=== PATIENT | female | born 1945 | race Caucasian/White ===

== ENCOUNTER 2018-12-20 10:40 | Inpatient (IN) | payer MEDICARE ==
[2018-12-20] VITALS (20 sets, daily range): BP systolic 85–145; BP diastolic 38–67
[~2018-12-20] VITALS: Ht 154.9 cm; Wt 96.8 kg
[2018-12-20] MEDS ORDERED: heparin 10,000 units/1 ML INJ IV ONE (12:30)
[2018-12-20] MEDS ORDERED: ondansetron/PF 4mg/2ml inj IV PRN (12:30)
[2018-12-20] MEDS ORDERED: morphine 4 MG/ML inj SYRINge IV PRN (12:30)
[2018-12-20] MEDS ORDERED: heparin 10,000 units/1 ML INJ IV PRN (12:30)
[2018-12-20] MEDS ORDERED: magnesium hydroxide 30ml (MOM) UD suspension PO PRN (12:30)
[2018-12-20] MEDS ORDERED: morphine 2 MG/ML inj. syringe IV PRN (12:30)
[2018-12-20] MEDS ORDERED: potassium Cl 20 mEq SR tablet PO PRN ×2 (12:30)
[2018-12-20] MEDS ORDERED: potassium CL 10mEq/100ml bag 100 ML IV PRN ×2 (12:30)
[2018-12-20] MEDS ORDERED: acetaminophen 325mg tablet PO PRN (12:30)
--- NOTE | 2018-12-20 12:30 | NUR ---
pt received from [facility] via [employer]. pt awake, alert, but inappropriate as to what is happening and why- reoriented quickly, but feeling claustrophobic and concerned about being stuck here in case there is a fire- reassured pt. discomfort left thigh- left leg edematous with numerous bruise. firmness left thigh posterior. 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 vss- sbp 90's upon arrival. dr segura here. labs drawn from picc without difficulty. temhaider perez placed
[2018-12-20 13:21] LABS: BASOPHILS % (AUTO) 0.5 % (0-1); EOSINOPHILS # (AUTO) 0.2 X10'3 (0-0.9); LYMPHOCYTES # (AUTO) 1.1 X10'3 (1.1-4.8); LYMPHOCYTES % (AUTO) 12.4 % (21-51); MEAN CORPUSCULAR HEMOGLOBIN 30.2 PG (27.0-31.0); MEAN CORPUSCULAR HGB CONC 33.8 g/dL (33.0-36.5); MEAN CORPUSCULAR VOLUME 89.3 FL (78-98); MEAN PLATELET VOLUME 7.9 FL (7.4-10.4); MONOCYTES # (AUTO) 1.1 X10'3 (0-0.9); MONOCYTES % (AUTO) 12.6 % (2-12); NEUTROPHILS # (AUTO) 6.3 X10'3 (1.8-7.7); NEUTROPHILS % (AUTO) 72.5 % (42-75); PLATELET COUNT 143 X10'3 (140-440); RED BLOOD COUNT 1.89 X10'6 (4.20-5.60); WHITE BLOOD COUNT 8.7 X10'3 (4.5-11.0)
--- NOTE | 2018-12-20 13:30 | NUR ---
to ct by bed.- tolerated fairly well.
[2018-12-20 13:31] LABS: HEMATOCRIT 16.9 % (35.0-45.0); HEMOGLOBIN 5.7 g/dl (12.0-16.0)
[2018-12-20 13:32] LABS: ALANINE AMINOTRANSFERASE 24 U/L (12-78); ALBUMIN 2.1 G/DL (3.4-5.0); ALBUMIN/GLOBULIN RATIO 0.7 (1.1-1.5); ALKALINE PHOSPHATASE 51 IU/L (46-116); ANION GAP 0 (8-16); ASPARTATE AMINO TRANSFERASE 11 U/L (10-37); BILIRUBIN,TOTAL 0.5 MG/DL (0.1-1.0); BLOOD UREA NITROGEN 20 MG/DL (7-18); BUN/CREATININE RATIO 14.7 (6.6-38.0); CALCIUM 7.6 MG/DL (8.5-10.1); CHLORIDE 104 MMOL/L (99-107); CREATININE 1.36 MG/DL (0.40-0.90); GLUCOSE 101 MG/DL (70-104); MAGNESIUM 1.9 MG/DL (1.5-2.4); PHOSPHORUS 4.1 MG/DL (2.3-4.5); POTASSIUM 4.4 MMOL/L (3.5-5.1); SODIUM 139 MMOL/L (135-145); TOTAL CARBON DIOXIDE 34.9 MMOL/L (24-32); eGFR 38 ML/MIN
[2018-12-20] MEDS ORDERED: COU4T PO (14:46)
[2018-12-20] MEDS ORDERED: CARV6.253 PO (14:46)
[2018-12-20] MEDS ORDERED: PRAZ2CAP2 PO (14:46)
[2018-12-20] MEDS ORDERED: HYDR-3965 PO (14:46)
[2018-12-20] MEDS ORDERED: TRAZ-219 PO (14:46)
[2018-12-20] MEDS ORDERED: ENOX100S3 SQ (14:46)
[2018-12-20] MEDS ORDERED: BUSP10TA11 PO (14:46)
[2018-12-20] MEDS ORDERED: VANC125C5 PO (14:46)
[2018-12-20] MEDS ORDERED: OMEP-271 PO (14:46)
[2018-12-20] MEDS ORDERED: AMIO200T61 PO (14:46)
--- NOTE | 2018-12-20 15:00 | NUR ---
notified that ct complete. will continue with heparin bolus and gtt.. 1 unit prbc hung.
[2018-12-20] MEDS: heparin 25,000 UNIT/250ml bag 250 ML IV SCH (15:11)
--- NOTE | 2018-12-20 16:30 | NUR ---
back to ct by bed- tolerated well. but pt more confused when talking to sister- though she came from a hotel or school. aware and knew dr hernandez when she came in. area on the left side old pigtail site bruised fir, area.
[2018-12-20] MEDS ORDERED: iohexol 350MG/ML 100ml bottle IV ONE (16:57)
[2018-12-20] MEDS: normal saline 1000ml 1,000 ML IV SCH (17:00)
--- NOTE | 2018-12-20 18:00 | NUR ---
h7h repeated, ivf ns hung as per mds orderes. md called before iv contrast re gfr of 38.
[2018-12-20 18:24] LABS: MEAN CORPUSCULAR HEMOGLOBIN 29.8 PG (27.0-31.0); MEAN CORPUSCULAR HGB CONC 33.9 g/dL (33.0-36.5); MEAN CORPUSCULAR VOLUME 87.8 FL (78-98); MEAN PLATELET VOLUME 7.8 FL (7.4-10.4); PLATELET COUNT 156 X10'3 (140-440); RED BLOOD COUNT 2.32 X10'6 (4.20-5.60); RED CELL DISTRIBUTION WIDTH 16.9 % (11.5-14.5); WHITE BLOOD COUNT 9.9 X10'3 (4.5-11.0)
[2018-12-20 18:32] LABS: HEMATOCRIT 20.4 % (35.0-45.0); HEMOGLOBIN 6.9 g/dl (12.0-16.0)
--- NOTE | 2018-12-20 18:40 | NUR ---
Patient in room ICU 2039. I have received report from CANDIDO Park and had the opportunity to ask questions and assume patient care.
--- NOTE | 2018-12-20 18:41 | NUR ---
Patient awake and alert to person place and events. Patient is pleasant and calm at this time. Patient moved up in bed for dinner tray. patient is able to swallow food without difficulty. Currently patient is on 1500 unit/hr of heparin and 100 ml/hr of NS infusing per MD order through RU arm PICC line. Patient with large area of bruising to left upper posterior thigh. Patient c/o pain with movement in bed. Will continue to monitor and assess. Patient has oxygen at 2 lpm via nasal cannula in place.
--- NOTE | 2018-12-20 19:11 | NUR ---
June Isak, MATHEMATICS IMPROVEMENT TEACHER at bedside. Viewed chest XR for PICC line placement. PICC line is okay to use. Made aware of H&H 6.9/20.4. Order to transfuse 2nd unit of PRBC's.
[2018-12-20] MEDS: docusate sod 100mg capsule PO SCH (20:00)
[2018-12-20] MEDS ORDERED: non-formulary drug (Buspirone Hcl* (Buspar*) 1 TAB) PO SCH (20:10)
[2018-12-20] MEDS: sennosides/docusate sodium tablet PO SCH (20:39)
[2018-12-20] MEDS ORDERED: non-formulary drug (Trazodone HCl 1 TAB) PO SCH (21:00)
[2018-12-20] MEDS ORDERED: non-formulary drug (Prazosin Hcl 1 CAP) PO SCH (21:00)
--- NOTE | 2018-12-20 21:10 | NUR ---
Phone call to Kalani Parisi NP Re: PTT 107. No change in orders follow protocol. Also made her aware that the patients pain is 7/10 and she does not want to take the morphine. She currently only has [place] 5/325 ordered, which was administered. Advised to call back later if medication is not effective.
[2018-12-20] MEDS: traZODone 50mg tablet PO SCH (21:41)
[2018-12-20] MEDS: carvedilol 6.25mg tablet PO SCH (21:41)
[2018-12-20] MEDS: prazosin 1mg capsule PO SCH (21:42)
[2018-12-20] MEDS: HYDROcodone/acetaminophen 5mg/325mg tablet PO PRN (21:49)
[2018-12-21] VITALS (25 sets, daily range): BP systolic 92–149; BP diastolic 39–81
--- NOTE | 2018-12-21 | NUR ---
Patient with increased confusion after Morphine administration. Patient is confused as to place and requires re orientation. Patient continues to be restless and c/o a "burning pain to back of left thigh". Thigh girth remeasured and bruising outlined with marker. Girth 68cm. Pedal pulses intact.
[2018-12-21] MEDS: vancomycin 125mg/5ml ORAL solution 5ml UD bottle PO SCH ×4 (02:10→20:12)
[2018-12-21] MEDS ORDERED: normal saline 250ml IV soln 250 ML IV ONE (02:40)
[2018-12-21] MEDS: normal saline 1000ml 1,000 ML IV SCH ×2 (03:01→12:21)
[2018-12-21 03:16] LABS: BASOPHILS # (AUTO) 0.1 X10'3 (0-0.2); BASOPHILS % (AUTO) 0.6 % (0-1); EOSINOPHILS # (AUTO) 0.2 X10'3 (0-0.9); EOSINOPHILS % (AUTO) 2.4 % (0-6); LYMPHOCYTES # (AUTO) 1.3 X10'3 (1.1-4.8); LYMPHOCYTES % (AUTO) 13.9 % (21-51); MEAN CORPUSCULAR HGB CONC 33.1 g/dL (33.0-36.5); MEAN CORPUSCULAR VOLUME 87.8 FL (78-98); MEAN PLATELET VOLUME 8.1 FL (7.4-10.4); NEUTROPHILS # (AUTO) 6.5 X10'3 (1.8-7.7); NEUTROPHILS % (AUTO) 72.1 % (42-75); PLATELET COUNT 138 X10'3 (140-440); RED BLOOD COUNT 2.37 X10'6 (4.20-5.60); RED CELL DISTRIBUTION WIDTH 17.3 % (11.5-14.5)
[2018-12-21 03:18] LABS: ALANINE AMINOTRANSFERASE 24 U/L (12-78); ALBUMIN/GLOBULIN RATIO 0.7 (1.1-1.5); ALKALINE PHOSPHATASE 54 IU/L (46-116); ANION GAP 2 (8-16); ASPARTATE AMINO TRANSFERASE 18 U/L (10-37); BILIRUBIN,TOTAL 0.7 MG/DL (0.1-1.0); BLOOD UREA NITROGEN 19 MG/DL (7-18); BUN/CREATININE RATIO 15.2 (6.6-38.0); CALCIUM 8.1 MG/DL (8.5-10.1); CHLORIDE 104 MMOL/L (99-107); CREATININE 1.25 MG/DL (0.40-0.90); GLUCOSE 104 MG/DL (70-104); PHOSPHORUS 4.7 MG/DL (2.3-4.5); POTASSIUM 4.5 MMOL/L (3.5-5.1); SODIUM 138 MMOL/L (135-145); TOTAL CARBON DIOXIDE 32.4 MMOL/L (24-32); TOTAL PROTEIN 4.8 G/DL (6.4-8.2); eGFR 42 ML/MIN
[2018-12-21 03:27] LABS: HEMOGLOBIN 6.9 g/dl (12.0-16.0)
[2018-12-21 03:28] LABS: HEMATOCRIT 20.8 % (35.0-45.0)
--- NOTE | 2018-12-21 03:30 | NUR ---
Lydia Parisi NP made aware of critical Hgb 6.9 and Hct 20.8. 1 more unit of PRBC's ordered.
--- NOTE | 2018-12-21 04:00 | NUR ---
Patient restless, moving around in bed. Patient is able to sleep occasionally throughout the night. When she does sleep she desaturates to the 80's, needs to be reminded to take deep breaths. Patient denies any history of sleep apnea.
[2018-12-21] MEDS: heparin 25,000 UNIT/250ml bag 250 ML IV SCH (05:09)
--- NOTE | 2018-12-21 06:30 | NUR ---
Patient in room ICU 2039. I have received report from and had the opportunity to ask questions and assume patient care.
--- NOTE | 2018-12-21 06:30 | NUR ---
Problems reprioritized. Patient report given, questions answered & plan of care reviewed with CANDIDO Park.
[2018-12-21] MEDS ORDERED: linezolid 600mg/300ml PREMIX 300 ML IV SCH (08:00)
[2018-12-21] MEDS: carvedilol 6.25mg tablet PO SCH ×2 (08:49→20:10)
[2018-12-21] MEDS: amiodarone 200mg tablet PO SCH (08:49)
[2018-12-21] MEDS: docusate sod 100mg capsule PO SCH ×2 (08:49→20:00)
[2018-12-21] MEDS: busPIRone 5mg tablet PO SCH ×2 (08:52→20:09)
[2018-12-21] MEDS: pantoprazole 40mg Tablet.DR PO SCH (09:00)
--- NOTE | 2018-12-21 10:00 | NUR ---
DISCUSSED WITH DR BARRETT AND CHARGE NURSE RE CT LAST NIGHT - FOCAL AREA OF ARTERIAL BLEED- ORDER TO HOLD HEPARIN GTT. 6' ALEX WRAP TO LEFT LEFT PT MORE ORIENTED, BUT STILL CONFUSED
[2018-12-21 10:57] LABS: HEMOGLOBIN 7.4 g/dl (12.0-16.0); MEAN CORPUSCULAR HEMOGLOBIN 29.9 PG (27.0-31.0); MEAN CORPUSCULAR HGB CONC 34.3 g/dL (33.0-36.5); MEAN CORPUSCULAR VOLUME 87.1 FL (78-98); MEAN PLATELET VOLUME 7.8 FL (7.4-10.4); PLATELET COUNT 136 X10'3 (140-440); RED BLOOD COUNT 2.48 X10'6 (4.20-5.60); WHITE BLOOD COUNT 8.9 X10'3 (4.5-11.0)
[2018-12-21 10:59] LABS: HEMATOCRIT 21.6 % (35.0-45.0)
[2018-12-21] MEDS: HYDROcodone/acetaminophen 5mg/325mg tablet PO PRN ×2 (12:19→16:33)
[2018-12-21] MEDS ORDERED: iohexol 350MG/ML 100ml bottle IV ONE (14:54)
--- NOTE | 2018-12-21 18:20 | NUR ---
Patient in room ICU 2039. I have received report from CANDIDO Franco and had the opportunity to ask questions and assume patient care.
--- NOTE | 2018-12-21 18:30 | NUR ---
Patient is confused to person only. During interaction with patient patient remembers her daytime RN Vivian and relates that she is wondering if she will talk to her again. When asked why the patient thought Vivian would not speak to her she elaborated that "I was not nice to her today." Stating "I dont know why you people have me in a room where everyone can see me. I don't like windows." I offered to close the blinds for her and she agreed that would help. During a second encounter to move her up in bed to reposition to eat dinner. Patient again confused about where she is reorientation provided. Patient did not eat dinner, called a friend "Bethany" stating that she "is in some kind of office or diner." Patient handed RN the phone and requested RN speak to her friend . RN clarified patients location and events with Bethany. Patient then became more confused and confrontational during lab draw from her PICC. Accusing "people with white teeth as part of a conspiracy." Asking "what is your motive?" Re orientation provided, Explained to patient that she was in the ICU and that we are her nurses taking care of her. Blood glucose assessed at 80 mg/dl. Patient without facial droop, patient has equal packing line operator. No slurred speech noted. Patient refused dinner tray and refused nighttime medications. Then changed her mind and said she would take the medications. patient manager notified. Will Continue to monitor.
[2018-12-21 19:42] LABS: HEMOGLOBIN 7.4 g/dl (12.0-16.0); MEAN CORPUSCULAR HEMOGLOBIN 30.2 PG (27.0-31.0); MEAN CORPUSCULAR HGB CONC 34.1 g/dL (33.0-36.5); MEAN CORPUSCULAR VOLUME 88.7 FL (78-98); MEAN PLATELET VOLUME 7.9 FL (7.4-10.4); PLATELET COUNT 145 X10'3 (140-440); RED BLOOD COUNT 2.44 X10'6 (4.20-5.60); RED CELL DISTRIBUTION WIDTH 17.1 % (11.5-14.5); WHITE BLOOD COUNT 8.8 X10'3 (4.5-11.0)
[2018-12-21] MEDS: lactobacillus rhamnosus 10,000 MMU CELLS/CAPSULE PO SCH (20:12)
[2018-12-21 20:14] LABS: HEMATOCRIT 21.6 % (35.0-45.0)
[2018-12-21] MEDS: sennosides/docusate sodium tablet PO SCH (21:00)
[2018-12-21] MEDS: prazosin 1mg capsule PO SCH (21:37)
[2018-12-21] MEDS: traZODone 50mg tablet PO SCH (21:38)
[2018-12-22] VITALS (24 sets, daily range): BP systolic 101–160; BP diastolic 38–72
[2018-12-22] MEDS: normal saline 1000ml 1,000 ML IV SCH ×3 (00:32→22:50)
--- NOTE | 2018-12-22 00:45 | NUR ---
Patient awoke confused trying to climb out of bed, Patient stating "you have no rights to keep me here" "I refuse service". I asked patient what we could do to help her. She wanted to sit up on the side of the bed. Patient instructed to please wait so we could make it safe. Patient states "I am not going to hurt you." "I don't want to hurt you." Patient is able to state her name and is aware that she is in the hospital is not aware of reasons why she is here. When attempting to orient patient to reason for her stay patient states " I do not have a bleed, this is smeared blood you put there." Staff reassured patient that she is safe. saw runner and Kalani Parisi NP at bedside. Addendum: 12/22/18 at 0159 by Alma Rosa Smith RN Kalani Parisi NP placed orders for Ativan one time if needed. Patient is talking and appears to be calming down at this time. Vice President For Instruction consult ordered.
[2018-12-22] MEDS ORDERED: LORazepam 2 mg/ml vial IV ONE (01:15)
[2018-12-22] MEDS: vancomycin 125mg/5ml ORAL solution 5ml UD bottle PO SCH ×4 (02:00→21:13)
[2018-12-22 04:49] LABS: BASOPHILS % (AUTO) 0.2 % (0-1); EOSINOPHILS # (AUTO) 0.2 X10'3 (0-0.9); EOSINOPHILS % (AUTO) 1.8 % (0-6); LYMPHOCYTES # (AUTO) 0.8 X10'3 (1.1-4.8); LYMPHOCYTES % (AUTO) 9.1 % (21-51); MEAN CORPUSCULAR HEMOGLOBIN 29.3 PG (27.0-31.0); MEAN CORPUSCULAR HGB CONC 32.6 g/dL (33.0-36.5); MEAN PLATELET VOLUME 7.8 FL (7.4-10.4); MONOCYTES # (AUTO) 0.8 X10'3 (0-0.9); MONOCYTES % (AUTO) 9.6 % (2-12); NEUTROPHILS % (AUTO) 79.3 % (42-75); PLATELET COUNT 138 X10'3 (140-440); RED BLOOD COUNT 2.32 X10'6 (4.20-5.60); RED CELL DISTRIBUTION WIDTH 17.1 % (11.5-14.5); WHITE BLOOD COUNT 8.8 X10'3 (4.5-11.0)
[2018-12-22 04:51] LABS: HEMATOCRIT 20.9 % (35.0-45.0); HEMOGLOBIN 6.8 g/dl (12.0-16.0)
--- NOTE | 2018-12-22 04:54 | NUR ---
Critical H&H Hgb 6.8 Hct 20.9. Result called to Kalani Parisi NP. She will place order for 1 unit PRBC's.
[2018-12-22 04:56] LABS: ALANINE AMINOTRANSFERASE 24 U/L (12-78); ALBUMIN/GLOBULIN RATIO 0.7 (1.1-1.5); ALKALINE PHOSPHATASE 56 IU/L (46-116); ANION GAP -2 (8-16); ASPARTATE AMINO TRANSFERASE 18 U/L (10-37); BILIRUBIN,TOTAL 0.7 MG/DL (0.1-1.0); BLOOD UREA NITROGEN 17 MG/DL (7-18); BUN/CREATININE RATIO 13.4 (6.6-38.0); CALCIUM 8.2 MG/DL (8.5-10.1); CHLORIDE 107 MMOL/L (99-107); CREATININE 1.27 MG/DL (0.40-0.90); GLUCOSE 86 MG/DL (70-104); PHOSPHORUS 5.1 MG/DL (2.3-4.5); SODIUM 139 MMOL/L (135-145); TOTAL CARBON DIOXIDE 33.7 MMOL/L (24-32); TOTAL PROTEIN 4.9 G/DL (6.4-8.2); eGFR 42 ML/MIN
--- NOTE | 2018-12-22 06:25 | NUR ---
Problems reprioritized. Patient report given, questions answered & plan of care reviewed with CANDIDO Mancilla.
[2018-12-22] MEDS: pantoprazole 40mg Tablet.DR PO SCH (07:59)
[2018-12-22] MEDS: lactobacillus rhamnosus 10,000 MMU CELLS/CAPSULE PO SCH ×2 (08:00→21:07)
[2018-12-22] MEDS: amiodarone 200mg tablet PO SCH (08:00)
[2018-12-22] MEDS: busPIRone 5mg tablet PO SCH ×2 (08:00→21:06)
[2018-12-22] MEDS: carvedilol 6.25mg tablet PO SCH ×2 (08:00→21:07)
[2018-12-22] MEDS: docusate sod 100mg capsule PO SCH ×2 (08:00→21:07)
[2018-12-22] MEDS ORDERED: heparin 10,000 units/1 ML INJ IV ONE (09:50)
[2018-12-22 10:30] LABS: HEMATOCRIT 24.2 % (35.0-45.0); HEMOGLOBIN 8.1 g/dl (12.0-16.0); MEAN CORPUSCULAR HEMOGLOBIN 29.5 PG (27.0-31.0); MEAN CORPUSCULAR HGB CONC 33.4 g/dL (33.0-36.5); MEAN CORPUSCULAR VOLUME 88.2 FL (78-98); MEAN PLATELET VOLUME 7.9 FL (7.4-10.4); PLATELET COUNT 161 X10'3 (140-440); RED BLOOD COUNT 2.74 X10'6 (4.20-5.60); RED CELL DISTRIBUTION WIDTH 16.8 % (11.5-14.5); WHITE BLOOD COUNT 9.1 X10'3 (4.5-11.0)
[2018-12-22 10:35] LABS: PARTIAL THROMBOPLASTIN TIME 31 SECONDS (22-32)
[2018-12-22] MEDS: heparin 25,000 UNIT/250ml bag 250 ML IV SCH (12:18)
[2018-12-22 13:30] LABS: HEMATOCRIT 27.3 % (35.0-45.0); HEMOGLOBIN 9.1 g/dl (12.0-16.0); MEAN CORPUSCULAR HEMOGLOBIN 29.7 PG (27.0-31.0); MEAN CORPUSCULAR HGB CONC 33.4 g/dL (33.0-36.5); MEAN CORPUSCULAR VOLUME 88.9 FL (78-98); MEAN PLATELET VOLUME 7.6 FL (7.4-10.4); PLATELET COUNT 155 X10'3 (140-440); RED BLOOD COUNT 3.07 X10'6 (4.20-5.60); RED CELL DISTRIBUTION WIDTH 16.3 % (11.5-14.5)
--- NOTE | 2018-12-22 13:50 | NUR ---
Patient admitted to room 3019A. Oriented to room, vital signs taken. BP 109/49, HR 83, O2 2L NC, temp 98.8.
--- NOTE | 2018-12-22 15:30 | NUR ---
Report called to CANDIDO Woodruff on PCU.
--- NOTE | 2018-12-22 15:41 | NUR ---
Patient in room ICU 2039. I have received report from CANDIDO Mancilla and had the opportunity to ask questions. Awaiting pt's arrival to PCU room 9650.
[2018-12-22] MEDS ORDERED: warfarin 3mg tablet PO ONE (17:00)
--- NOTE | 2018-12-22 17:17 | NUR ---
Patient pulled out perez catheter and is voicing that we are "trying to drug her" and she "doesn't trust us." Called Kianna Pollard and she states we do not have to replace perez and that she will possibly order sitter once she reads more about patient.
--- NOTE | 2018-12-22 17:19 | NUR ---
Requested coumadin from pharmacy. Not stocked in [facility] for 1700 dose.
--- NOTE | 2018-12-22 18:42 | NUR ---
Patient in room PCU 3019. I have received report from Eliza REY and had the opportunity to ask questions and assume patient care.
--- NOTE | 2018-12-22 18:45 | NUR ---
Problems reprioritized. Patient report given, questions answered & plan of care reviewed with Robles RN.
[2018-12-22] MEDS: sennosides/docusate sodium tablet PO SCH (21:00)
[2018-12-22] MEDS: prazosin 1mg capsule PO SCH (21:09)
[2018-12-22] MEDS: traZODone 50mg tablet PO SCH (21:10)
--- NOTE | 2018-12-23 01:06 | NUR ---
THERAPEUTIC PTT no heparin rate change PTT 47 will order next draw 6 hours from last draw time
[2018-12-23 01:49] LABS: BASOPHILS % (AUTO) 0.5 % (0-1); EOSINOPHILS # (AUTO) 0.2 X10'3 (0-0.9); EOSINOPHILS % (AUTO) 1.9 % (0-6); HEMATOCRIT 25.1 % (35.0-45.0); HEMOGLOBIN 8.6 g/dl (12.0-16.0); LYMPHOCYTES # (AUTO) 1.2 X10'3 (1.1-4.8); LYMPHOCYTES % (AUTO) 14.2 % (21-51); MEAN CORPUSCULAR HEMOGLOBIN 29.7 PG (27.0-31.0); MEAN CORPUSCULAR VOLUME 87.3 FL (78-98); MEAN PLATELET VOLUME 7.7 FL (7.4-10.4); MONOCYTES # (AUTO) 0.8 X10'3 (0-0.9); MONOCYTES % (AUTO) 9.9 % (2-12); NEUTROPHILS # (AUTO) 6.1 X10'3 (1.8-7.7); NEUTROPHILS % (AUTO) 73.5 % (42-75); PLATELET COUNT 151 X10'3 (140-440); RED BLOOD COUNT 2.88 X10'6 (4.20-5.60); RED CELL DISTRIBUTION WIDTH 16.5 % (11.5-14.5); WHITE BLOOD COUNT 8.3 X10'3 (4.5-11.0)
[2018-12-23 01:57] LABS: ALANINE AMINOTRANSFERASE 25 U/L (12-78); ALBUMIN/GLOBULIN RATIO 0.6 (1.1-1.5); ALKALINE PHOSPHATASE 59 IU/L (46-116); ANION GAP 4 (8-16); ASPARTATE AMINO TRANSFERASE 12 U/L (10-37); BILIRUBIN,TOTAL 0.9 MG/DL (0.1-1.0); BLOOD UREA NITROGEN 20 MG/DL (7-18); BUN/CREATININE RATIO 14.6 (6.6-38.0); CALCIUM 7.6 MG/DL (8.5-10.1); CHLORIDE 106 MMOL/L (99-107); CREATININE 1.37 MG/DL (0.40-0.90); GLUCOSE 104 MG/DL (70-104); MAGNESIUM 1.9 MG/DL (1.5-2.4); PHOSPHORUS 3.5 MG/DL (2.3-4.5); POTASSIUM 4.4 MMOL/L (3.5-5.1); SODIUM 139 MMOL/L (135-145); TOTAL CARBON DIOXIDE 29.3 MMOL/L (24-32); TOTAL PROTEIN 5.2 G/DL (6.4-8.2); eGFR 38 ML/MIN
[2018-12-23] MEDS: vancomycin 125mg/5ml ORAL solution 5ml UD bottle PO SCH ×4 (02:35→19:48)
[2018-12-23] MEDS: HYDROcodone/acetaminophen 5mg/325mg tablet PO PRN ×3 (02:39→21:11)
[2018-12-23 03:00] VITALS: BP 125/77
[2018-12-23] MEDS: normal saline 1000ml 1,000 ML IV SCH ×3 (05:33→19:47)
[2018-12-23 05:50] LABS: TOTAL CELLS COUNTED 100
[2018-12-23 05:51] LABS: ANISOCYTOSIS 1+; HYPOCHROMASIA 1+; PLATELET ESTIMATE NORMAL; TOXIC GRANULATION 1+
--- NOTE | 2018-12-23 06:07 | NUR ---
Problems reprioritized. Patient report given, questions answered & plan of care reviewed with Ana REY.
[2018-12-23 07:08] VITALS: BP 112/80
[2018-12-23] MEDS ORDERED: warfarin 3mg tablet PO SCH (08:00)
[2018-12-23] MEDS: docusate sod 100mg capsule PO SCH ×2 (08:17→19:47)
[2018-12-23] MEDS: amiodarone 200mg tablet PO SCH (08:17)
[2018-12-23] MEDS: lactobacillus rhamnosus 10,000 MMU CELLS/CAPSULE PO SCH ×2 (08:17→19:47)
[2018-12-23] MEDS: busPIRone 5mg tablet PO SCH ×2 (08:17→19:47)
[2018-12-23] MEDS: carvedilol 6.25mg tablet PO SCH ×2 (08:17→19:47)
[2018-12-23] MEDS: pantoprazole 40mg Tablet.DR PO SCH (08:17)
[2018-12-23] MEDS: heparin 10,000 units/1 ML INJ IV PRN (08:17)
[2018-12-23] MEDS: heparin 25,000 UNIT/250ml bag 250 ML IV SCH (09:23)
[2018-12-23 11:00] VITALS: BP 134/77
[2018-12-23 15:00] VITALS: BP 142/70
[2018-12-23] MEDS: LORazepam 1 MG tablet PO PRN (16:02)
--- NOTE | 2018-12-23 16:06 | NUR ---
ALEX removed from LLE. Pt. crying in pain. Medicated with [place] and Ativan.
[2018-12-23] MEDS ORDERED: HYDROmorphone 1 mg/ml syringe IV ONE (16:40)
--- NOTE | 2018-12-23 16:49 | NUR ---
Dr. Ocasio in to see pt. RN called and spoke with Alex in the [facility] pharmacy who stated pt. started on PO Vanco on 12/14/[address] Ocasio that pt. was currently getting treated for CDIFF. One time order for 1mg Dilaudid received as pt. was writhing in pain when Dr. Ocasio saw her.
[2018-12-23] MEDS ORDERED: warfarin 4mg tablet PO ONE (17:00)
--- NOTE | 2018-12-23 18:18 | NUR ---
Problems reprioritized. Patient report given, questions answered & plan of care reviewed with Dante REY.
[2018-12-23 18:50] VITALS: BP 118/78
[2018-12-23] MEDS: sennosides/docusate sodium tablet PO SCH ×2 (21:00→21:25)
[2018-12-23] MEDS: prazosin 1mg capsule PO SCH (21:25)
[2018-12-23] MEDS: traZODone 50mg tablet PO SCH (21:25)
[2018-12-23 23:00] VITALS: BP 120/71
[2018-12-24] VITALS (11 sets, daily range): BP systolic 114–148; BP diastolic 51–75
[2018-12-24] MEDS: vancomycin 125mg/5ml ORAL solution 5ml UD bottle PO SCH ×4 (01:50→20:34)
[2018-12-24 03:24] LABS: BASOPHILS % (AUTO) 0.3 % (0-1); EOSINOPHILS # (AUTO) 0.1 X10'3 (0-0.9); EOSINOPHILS % (AUTO) 1.3 % (0-6); HEMOGLOBIN 7.2 g/dl (12.0-16.0); LYMPHOCYTES # (AUTO) 0.9 X10'3 (1.1-4.8); LYMPHOCYTES % (AUTO) 8.8 % (21-51); MEAN CORPUSCULAR HEMOGLOBIN 29.8 PG (27.0-31.0); MEAN CORPUSCULAR VOLUME 90.3 FL (78-98); MEAN PLATELET VOLUME 7.4 FL (7.4-10.4); MONOCYTES % (AUTO) 9.6 % (2-12); NEUTROPHILS # (AUTO) 8.1 X10'3 (1.8-7.7); PLATELET COUNT 154 X10'3 (140-440); RED BLOOD COUNT 2.43 X10'6 (4.20-5.60); RED CELL DISTRIBUTION WIDTH 16.9 % (11.5-14.5); WHITE BLOOD COUNT 10.1 X10'3 (4.5-11.0)
[2018-12-24 03:26] LABS: HEMATOCRIT 21.9 % (35.0-45.0)
[2018-12-24 03:31] LABS: ALANINE AMINOTRANSFERASE 21 U/L (12-78); ALBUMIN 1.9 G/DL (3.4-5.0); ALBUMIN/GLOBULIN RATIO 0.6 (1.1-1.5); ALKALINE PHOSPHATASE 55 IU/L (46-116); ANION GAP 0 (8-16); ASPARTATE AMINO TRANSFERASE 14 U/L (10-37); BILIRUBIN,TOTAL 0.8 MG/DL (0.1-1.0); BLOOD UREA NITROGEN 19 MG/DL (7-18); CALCIUM 8.1 MG/DL (8.5-10.1); CHLORIDE 109 MMOL/L (99-107); CREATININE 1.19 MG/DL (0.40-0.90); GLUCOSE 106 MG/DL (70-104); MAGNESIUM 1.9 MG/DL (1.5-2.4); PHOSPHORUS 3.8 MG/DL (2.3-4.5); POTASSIUM 4.6 MMOL/L (3.5-5.1); SODIUM 140 MMOL/L (135-145); TOTAL CARBON DIOXIDE 31.2 MMOL/L (24-32); eGFR 45 ML/MIN
[2018-12-24] MEDS: normal saline 1000ml 1,000 ML IV SCH ×2 (05:10→12:22)
[2018-12-24] MEDS: heparin 25,000 UNIT/250ml bag 250 ML IV SCH (05:13)
--- NOTE | 2018-12-24 06:10 | NUR ---
Patient in room PCU 3019. I have received report from Dante REY and had the opportunity to ask questions and assume patient care.
--- NOTE | 2018-12-24 06:46 | NUR ---
Problems reprioritized. Patient report given, questions answered & plan of care reviewed with BEN. Addendum: 12/24/18 at 0646 by Larry Cheng RN Amended: Links added.
[2018-12-24] MEDS: carvedilol 6.25mg tablet PO SCH ×2 (07:51→20:34)
[2018-12-24] MEDS: busPIRone 5mg tablet PO SCH ×2 (07:51→19:49)
[2018-12-24] MEDS: lactobacillus rhamnosus 10,000 MMU CELLS/CAPSULE PO SCH ×2 (07:51→19:49)
[2018-12-24] MEDS: amiodarone 200mg tablet PO SCH (07:51)
[2018-12-24] MEDS: pantoprazole 40mg Tablet.DR PO SCH (07:51)
[2018-12-24] MEDS: docusate sod 100mg capsule PO SCH ×2 (07:51→19:49)
[2018-12-24] MEDS: HYDROcodone/acetaminophen 5mg/325mg tablet PO PRN ×2 (07:52→14:02)
[2018-12-24 08:34] LABS: HEMATOCRIT 22.5 % (35.0-45.0); HEMOGLOBIN 7.5 g/dl (12.0-16.0); MEAN CORPUSCULAR HEMOGLOBIN 29.9 PG (27.0-31.0); MEAN CORPUSCULAR HGB CONC 33.5 g/dL (33.0-36.5); MEAN CORPUSCULAR VOLUME 89.3 FL (78-98); MEAN PLATELET VOLUME 7.7 FL (7.4-10.4); PLATELET COUNT 157 X10'3 (140-440); RED BLOOD COUNT 2.52 X10'6 (4.20-5.60); RED CELL DISTRIBUTION WIDTH 16.5 % (11.5-14.5)
[2018-12-24 15:54] LABS: HEMOGLOBIN 7.1 g/dl (12.0-16.0); MEAN CORPUSCULAR HEMOGLOBIN 30.2 PG (27.0-31.0); MEAN CORPUSCULAR HGB CONC 33.4 g/dL (33.0-36.5); MEAN CORPUSCULAR VOLUME 90.5 FL (78-98); MEAN PLATELET VOLUME 7.7 FL (7.4-10.4); PLATELET COUNT 158 X10'3 (140-440); RED BLOOD COUNT 2.33 X10'6 (4.20-5.60); RED CELL DISTRIBUTION WIDTH 16.7 % (11.5-14.5); WHITE BLOOD COUNT 10.4 X10'3 (4.5-11.0)
[2018-12-24 15:57] LABS: HEMATOCRIT 21.1 % (35.0-45.0)
[2018-12-24] MEDS ORDERED: furosemide 40mg/4ml inj IV ONE (18:15)
--- NOTE | 2018-12-24 18:40 | NUR ---
Problems reprioritized. Patient report given, questions answered & plan of care reviewed with Lynette REY.
--- NOTE | 2018-12-24 18:45 | NUR ---
Patient in room PCU 3019. I have received report from Niesha REY and had the opportunity to ask questions and assume patient care. Patient in bed, receiving blood, sitter at bedside. Will continue to monitor.
--- NOTE | 2018-12-24 18:56 | NUR ---
Called sister re: patients upsetting voicemail. Will make noc provider aware that she wishes to speak to her.
--- NOTE | 2018-12-24 19:00 | NUR ---
Spoke with Kalani Parisi WINDOWS DESKTOP SUPPORT in regards to family request of call this evening. Notified her that the family was told already that it will likely need to wait until tomorrow as Dr. Cope stated. June states she will try to call but she is with patients at this time and is unable to. Will continue to monitor.
--- NOTE | 2018-12-24 19:22 | NUR ---
Spoke with lab in regards to blood and heparin running for patient. Unable to draw cardiac at PTT at 1930 as ordered due to blood running. Verirfied with lab that this is okay due to therapeutic last multiple draws and is protocol to not draw during blood. Verified with lab okay to draw cardiac PTT one hour after blood transfusion is complete. Will continue to monitor.
[2018-12-24] MEDS: sennosides/docusate sodium tablet PO SCH (20:36)
[2018-12-24] MEDS ORDERED: warfarin 4mg tablet PO ONE (21:00)
[2018-12-24] MEDS: prazosin 1mg capsule PO SCH (21:49)
[2018-12-24] MEDS: traZODone 50mg tablet PO SCH (21:50)
[2018-12-24 22:10] LABS: HEMATOCRIT 23.9 % (35.0-45.0); MEAN CORPUSCULAR HEMOGLOBIN 30.2 PG (27.0-31.0); MEAN CORPUSCULAR HGB CONC 33.6 g/dL (33.0-36.5); MEAN CORPUSCULAR VOLUME 89.9 FL (78-98); MEAN PLATELET VOLUME 7.5 FL (7.4-10.4); PLATELET COUNT 167 X10'3 (140-440); RED BLOOD COUNT 2.65 X10'6 (4.20-5.60); RED CELL DISTRIBUTION WIDTH 16.4 % (11.5-14.5); WHITE BLOOD COUNT 9.7 X10'3 (4.5-11.0)
[2018-12-25 02:00] VITALS: BP 120/47
[2018-12-25] MEDS: vancomycin 125mg/5ml ORAL solution 5ml UD bottle PO SCH ×4 (02:17→20:09)
[2018-12-25 04:38] LABS: BASOPHILS % (AUTO) 0.4 % (0-1); EOSINOPHILS # (AUTO) 0.2 X10'3 (0-0.9); EOSINOPHILS % (AUTO) 2.3 % (0-6); HEMOGLOBIN 7.6 g/dl (12.0-16.0); LYMPHOCYTES # (AUTO) 0.9 X10'3 (1.1-4.8); LYMPHOCYTES % (AUTO) 11.3 % (21-51); MEAN CORPUSCULAR HEMOGLOBIN 29.9 PG (27.0-31.0); MEAN CORPUSCULAR HGB CONC 33.1 g/dL (33.0-36.5); MEAN CORPUSCULAR VOLUME 90.3 FL (78-98); MEAN PLATELET VOLUME 7.6 FL (7.4-10.4); MONOCYTES # (AUTO) 0.9 X10'3 (0-0.9); MONOCYTES % (AUTO) 10.8 % (2-12); NEUTROPHILS # (AUTO) 6.2 X10'3 (1.8-7.7); NEUTROPHILS % (AUTO) 75.2 % (42-75); PLATELET COUNT 165 X10'3 (140-440); RED BLOOD COUNT 2.55 X10'6 (4.20-5.60); RED CELL DISTRIBUTION WIDTH 16.6 % (11.5-14.5); WHITE BLOOD COUNT 8.3 X10'3 (4.5-11.0)
[2018-12-25 04:49] LABS: ALANINE AMINOTRANSFERASE 20 U/L (12-78); ALBUMIN 1.9 G/DL (3.4-5.0); ALBUMIN/GLOBULIN RATIO 0.6 (1.1-1.5); ALKALINE PHOSPHATASE 60 IU/L (46-116); ANION GAP 4 (8-16); ASPARTATE AMINO TRANSFERASE 20 U/L (10-37); BILIRUBIN,TOTAL 0.9 MG/DL (0.1-1.0); BLOOD UREA NITROGEN 20 MG/DL (7-18); BUN/CREATININE RATIO 15.5 (6.6-38.0); CALCIUM 8.2 MG/DL (8.5-10.1); CHLORIDE 107 MMOL/L (99-107); CREATININE 1.29 MG/DL (0.40-0.90); GLUCOSE 93 MG/DL (70-104); MAGNESIUM 1.7 MG/DL (1.5-2.4); PHOSPHORUS 3.4 MG/DL (2.3-4.5); POTASSIUM 4.1 MMOL/L (3.5-5.1); SODIUM 141 MMOL/L (135-145); TOTAL CARBON DIOXIDE 30.4 MMOL/L (24-32); eGFR 41 ML/MIN
[2018-12-25] MEDS: heparin 25,000 UNIT/250ml bag 250 ML IV SCH ×3 (04:49→13:45)
--- NOTE | 2018-12-25 05:00 | NUR ---
Reviewed patient's record from [facility], patient refused PICC line dressing change on 12/20 despite education in regards to risks.
[2018-12-25] MEDS: heparin 10,000 units/1 ML INJ IV PRN (05:04)
--- NOTE | 2018-12-25 06:20 | NUR ---
Patient in room PCU 3019. I have received report from Lynette REY and had the opportunity to ask questions and assume patient care.
--- NOTE | 2018-12-25 06:32 | NUR ---
Problems reprioritized. Patient report given, questions answered & plan of care reviewed with Niesha REY. Sitter at bedside.
[2018-12-25 07:00] VITALS: BP 134/61
[2018-12-25] MEDS: pantoprazole 40mg Tablet.DR PO SCH (08:18)
[2018-12-25] MEDS: docusate sod 100mg capsule PO SCH ×2 (08:18→20:09)
[2018-12-25] MEDS: lactobacillus rhamnosus 10,000 MMU CELLS/CAPSULE PO SCH ×2 (08:18→20:09)
[2018-12-25] MEDS: busPIRone 5mg tablet PO SCH ×2 (08:18→20:09)
[2018-12-25] MEDS: amiodarone 200mg tablet PO SCH (08:18)
[2018-12-25] MEDS: carvedilol 6.25mg tablet PO SCH ×2 (08:18→20:09)
[2018-12-25 11:00] VITALS: BP 137/67
--- NOTE | 2018-12-25 11:15 | NUR ---
Initial: Pt admit w/ anemia currently AOx1. BMI 41, well-nourished female per MD note. Pt currently on c.diff isolation w/ no diarrhea noted this admit LBM 7 and also receiving routine colace, senna, and received dulcolax today per RN. Per RN on isolation until antibiotic course completes. Pt PO 75-100% prior meals meeting needs but refused dinner last night. Will continue to monitor. Rec: 1. continue regular diet 2. hold bowel care if diarrhea 3. wt per rx Addendum: 12/25/18 at [address] Amended: Links added.
[2018-12-25 11:33] LABS: HEMATOCRIT 24.8 % (35.0-45.0); HEMOGLOBIN 8.3 g/dl (12.0-16.0); MEAN CORPUSCULAR HEMOGLOBIN 30.2 PG (27.0-31.0); MEAN CORPUSCULAR HGB CONC 33.6 g/dL (33.0-36.5); MEAN CORPUSCULAR VOLUME 89.8 FL (78-98); MEAN PLATELET VOLUME 7.7 FL (7.4-10.4); PLATELET COUNT 187 X10'3 (140-440); RED BLOOD COUNT 2.77 X10'6 (4.20-5.60); RED CELL DISTRIBUTION WIDTH 16.7 % (11.5-14.5); WHITE BLOOD COUNT 8.2 X10'3 (4.5-11.0)
--- NOTE | 2018-12-25 12:00 | NUR ---
Stopped Heparin drip at this time for 1 hour per protocol.
--- NOTE | 2018-12-25 13:41 | NUR ---
Computer scan did not work for Vancomycin oral mediation.
--- NOTE | 2018-12-25 13:43 | NUR ---
Turned Heparin drip back on and decreased it to 1200 units per protocol.
[2018-12-25 15:00] VITALS: BP 131/54
--- NOTE | 2018-12-25 16:53 | NUR ---
Paged hosp, "hernán [id number]- room 3012B, Intake output unbalanced, noted swelling to hands and ankles, decreased IVF;s to 75 ml/hr please call."
--- NOTE | 2018-12-25 17:53 | NUR ---
ORIENT documentation: I have reviewed and agree with all interventions, assessments performed and documented by SELINA REY.
[2018-12-25 18:18] VITALS: BP 151/67
--- NOTE | 2018-12-25 18:32 | NUR ---
Patient in room PCU 3019. I have received report from Roman REY and had the opportunity to ask questions and assume patient care.
--- NOTE | 2018-12-25 18:44 | NUR ---
Problems reprioritized. Patient report given, questions answered & plan of care reviewed with Salome REY.
[2018-12-25 19:36] LABS: HEMOGLOBIN 7.3 g/dl (12.0-16.0); MEAN CORPUSCULAR HEMOGLOBIN 30.1 PG (27.0-31.0); MEAN CORPUSCULAR HGB CONC 33.9 g/dL (33.0-36.5); MEAN CORPUSCULAR VOLUME 88.8 FL (78-98); MEAN PLATELET VOLUME 7.3 FL (7.4-10.4); PLATELET COUNT 190 X10'3 (140-440); RED BLOOD COUNT 2.44 X10'6 (4.20-5.60); RED CELL DISTRIBUTION WIDTH 16.3 % (11.5-14.5); WHITE BLOOD COUNT 7.7 X10'3 (4.5-11.0)
[2018-12-25 19:42] LABS: HEMATOCRIT 21.7 % (35.0-45.0)
--- NOTE | 2018-12-25 19:49 | NUR ---
hematocrite 21.7 critical , called Calvin PARACHUTE TAPER , got an order to wait for the next PTT and hemogram
[2018-12-25] MEDS: HYDROcodone/acetaminophen 5mg/325mg tablet PO PRN (20:34)
[2018-12-25] MEDS: traZODone 50mg tablet PO SCH (20:35)
[2018-12-25] MEDS: prazosin 1mg capsule PO SCH (20:35)
[2018-12-25] MEDS: sennosides/docusate sodium tablet PO SCH ×2 (20:36→21:00)
[2018-12-25] MEDS ORDERED: warfarin 3mg tablet PO ONE (21:00)
[2018-12-25] MEDS: LORazepam 2 mg/ml vial IV PRN (22:25)
--- NOTE | 2018-12-25 22:55 | NUR ---
pt c/o pain 8 on left thigh with sharp pain, gave monecal q4 90 @2029, contacted June WIRE TRANSFER CLERK, she suggested pt take the ativan because she concerning that pt was hallucinating since the beginning of the shift and low BP.
[2018-12-25 23:00] VITALS: BP 107/41
[2018-12-26] VITALS (11 sets, daily range): BP systolic 103–150; BP diastolic 50–66
[2018-12-26] MEDS: vancomycin 125mg/5ml ORAL solution 5ml UD bottle PO SCH ×4 (02:17→20:18)
[2018-12-26 02:33] LABS: BASOPHILS % (AUTO) 0.5 % (0-1); EOSINOPHILS # (AUTO) 0.2 X10'3 (0-0.9); EOSINOPHILS % (AUTO) 3.1 % (0-6); MEAN CORPUSCULAR HEMOGLOBIN 29.6 PG (27.0-31.0); MEAN CORPUSCULAR HGB CONC 32.9 g/dL (33.0-36.5); MEAN PLATELET VOLUME 7.3 FL (7.4-10.4); MONOCYTES # (AUTO) 0.8 X10'3 (0-0.9); MONOCYTES % (AUTO) 12.1 % (2-12); NEUTROPHILS # (AUTO) 4.4 X10'3 (1.8-7.7); NEUTROPHILS % (AUTO) 68.3 % (42-75); PLATELET COUNT 176 X10'3 (140-440); RED BLOOD COUNT 2.21 X10'6 (4.20-5.60); RED CELL DISTRIBUTION WIDTH 16.7 % (11.5-14.5); WHITE BLOOD COUNT 6.5 X10'3 (4.5-11.0)
[2018-12-26 02:35] LABS: HEMATOCRIT 19.9 % (35.0-45.0); HEMOGLOBIN 6.5 g/dl (12.0-16.0)
--- NOTE | 2018-12-26 02:39 | NUR ---
H/H 6.5/.9 called June and got an order of 1 unit of blood for transfusion
[2018-12-26 02:57] LABS: ALANINE AMINOTRANSFERASE 20 U/L (12-78); ALBUMIN 1.8 G/DL (3.4-5.0); ALBUMIN/GLOBULIN RATIO 0.6 (1.1-1.5); ALKALINE PHOSPHATASE 56 IU/L (46-116); ANION GAP -1 (8-16); ASPARTATE AMINO TRANSFERASE 18 U/L (10-37); BILIRUBIN,TOTAL 0.9 MG/DL (0.1-1.0); BLOOD UREA NITROGEN 21 MG/DL (7-18); BUN/CREATININE RATIO 16.3 (6.6-38.0); CALCIUM 8.1 MG/DL (8.5-10.1); CHLORIDE 109 MMOL/L (99-107); CREATININE 1.29 MG/DL (0.40-0.90); GLUCOSE 89 MG/DL (70-104); MAGNESIUM 1.8 MG/DL (1.5-2.4); PHOSPHORUS 3.9 MG/DL (2.3-4.5); POTASSIUM 4.2 MMOL/L (3.5-5.1); SODIUM 142 MMOL/L (135-145); TOTAL CARBON DIOXIDE 33.8 MMOL/L (24-32); TOTAL PROTEIN 4.9 G/DL (6.4-8.2); eGFR 41 ML/MIN
[2018-12-26 03:00] LABS: ANISOCYTOSIS 1+; PLATELET ESTIMATE NORMAL; TOTAL CELLS COUNTED 100
[2018-12-26] MEDS: heparin 25,000 UNIT/250ml bag 250 ML IV SCH (03:18)
--- NOTE | 2018-12-26 06:58 | NUR ---
Patient in room PCU 3019. I have received report from krunal griffiths and had the opportunity to ask questions and assume patient care.
--- NOTE | 2018-12-26 07:05 | NUR ---
Problems reprioritized. Patient report given, questions answered & plan of care reviewed with Simi REY.
[2018-12-26] MEDS: lactobacillus rhamnosus 10,000 MMU CELLS/CAPSULE PO SCH ×2 (07:40→20:17)
[2018-12-26] MEDS: pantoprazole 40mg Tablet.DR PO SCH (07:40)
[2018-12-26] MEDS: carvedilol 6.25mg tablet PO SCH ×2 (07:40→20:15)
[2018-12-26] MEDS: busPIRone 5mg tablet PO SCH ×2 (07:40→20:14)
[2018-12-26] MEDS: amiodarone 200mg tablet PO SCH (07:40)
[2018-12-26] MEDS: docusate sod 100mg capsule PO SCH ×2 (07:40→20:00)
[2018-12-26 09:03] LABS: HEMATOCRIT 24.3 % (35.0-45.0); HEMOGLOBIN 8.1 g/dl (12.0-16.0); MEAN CORPUSCULAR HEMOGLOBIN 29.9 PG (27.0-31.0); MEAN CORPUSCULAR HGB CONC 33.4 g/dL (33.0-36.5); MEAN CORPUSCULAR VOLUME 89.7 FL (78-98); MEAN PLATELET VOLUME 7.1 FL (7.4-10.4); PLATELET COUNT 182 X10'3 (140-440); RED BLOOD COUNT 2.71 X10'6 (4.20-5.60); RED CELL DISTRIBUTION WIDTH 16.1 % (11.5-14.5); WHITE BLOOD COUNT 6.8 X10'3 (4.5-11.0)
[2018-12-26] MEDS: HYDROcodone/acetaminophen 5mg/325mg tablet PO PRN ×2 (13:21→17:14)
[2018-12-26 15:57] LABS: BASOPHILS % (AUTO) 0.4 % (0-1); EOSINOPHILS # (AUTO) 0.2 X10'3 (0-0.9); EOSINOPHILS % (AUTO) 2.4 % (0-6); HEMATOCRIT 25.2 % (35.0-45.0); HEMOGLOBIN 8.4 g/dl (12.0-16.0); LYMPHOCYTES # (AUTO) 0.8 X10'3 (1.1-4.8); LYMPHOCYTES % (AUTO) 10.2 % (21-51); MEAN CORPUSCULAR HEMOGLOBIN 30.2 PG (27.0-31.0); MEAN CORPUSCULAR HGB CONC 33.4 g/dL (33.0-36.5); MEAN CORPUSCULAR VOLUME 90.3 FL (78-98); MEAN PLATELET VOLUME 7.4 FL (7.4-10.4); MONOCYTES # (AUTO) 0.8 X10'3 (0-0.9); MONOCYTES % (AUTO) 9.8 % (2-12); NEUTROPHILS # (AUTO) 6.2 X10'3 (1.8-7.7); NEUTROPHILS % (AUTO) 77.2 % (42-75); PLATELET COUNT 200 X10'3 (140-440); RED BLOOD COUNT 2.79 X10'6 (4.20-5.60); RED CELL DISTRIBUTION WIDTH 15.8 % (11.5-14.5)
[2018-12-26] MEDS: acetaminophen 325mg tablet PO PRN (16:37)
--- NOTE | 2018-12-26 18:36 | NUR ---
Problems reprioritized. Patient report given, questions answered & plan of care reviewed with BILLY REY.
[2018-12-26] MEDS: traZODone 50mg tablet PO SCH (20:18)
[2018-12-26] MEDS: prazosin 1mg capsule PO SCH (20:23)
[2018-12-26] MEDS: sennosides/docusate sodium tablet PO SCH (20:25)
[2018-12-26] MEDS ORDERED: warfarin 4mg tablet PO ONE (21:00)
[2018-12-26 22:07] LABS: HEMOGLOBIN 7.7 g/dl (12.0-16.0); MEAN CORPUSCULAR HEMOGLOBIN 30.2 PG (27.0-31.0); MEAN CORPUSCULAR HGB CONC 33.4 g/dL (33.0-36.5); MEAN CORPUSCULAR VOLUME 90.4 FL (78-98); MEAN PLATELET VOLUME 7.2 FL (7.4-10.4); PLATELET COUNT 190 X10'3 (140-440); RED BLOOD COUNT 2.55 X10'6 (4.20-5.60); WHITE BLOOD COUNT 8.9 X10'3 (4.5-11.0)
--- NOTE | 2018-12-26 22:42 | NUR ---
ptt was 45 , no change in rate
[2018-12-27] MEDS: vancomycin 125mg/5ml ORAL solution 5ml UD bottle PO SCH ×4 (02:42→20:33)
[2018-12-27 03:00] VITALS: BP 94/58
[2018-12-27 04:29] LABS: BASOPHILS % (AUTO) 0.5 % (0-1); EOSINOPHILS # (AUTO) 0.2 X10'3 (0-0.9); EOSINOPHILS % (AUTO) 2.8 % (0-6); HEMATOCRIT 22.7 % (35.0-45.0); HEMOGLOBIN 7.6 g/dl (12.0-16.0); LYMPHOCYTES # (AUTO) 0.8 X10'3 (1.1-4.8); LYMPHOCYTES % (AUTO) 11.2 % (21-51); MEAN CORPUSCULAR HEMOGLOBIN 30.2 PG (27.0-31.0); MEAN CORPUSCULAR HGB CONC 33.3 g/dL (33.0-36.5); MEAN CORPUSCULAR VOLUME 90.9 FL (78-98); MEAN PLATELET VOLUME 7.2 FL (7.4-10.4); MONOCYTES # (AUTO) 0.8 X10'3 (0-0.9); MONOCYTES % (AUTO) 11.2 % (2-12); NEUTROPHILS # (AUTO) 5.5 X10'3 (1.8-7.7); NEUTROPHILS % (AUTO) 74.3 % (42-75); PLATELET COUNT 189 X10'3 (140-440); RED CELL DISTRIBUTION WIDTH 15.7 % (11.5-14.5); WHITE BLOOD COUNT 7.5 X10'3 (4.5-11.0)
[2018-12-27 04:39] LABS: ALANINE AMINOTRANSFERASE 21 U/L (12-78); ALBUMIN/GLOBULIN RATIO 0.6 (1.1-1.5); ALKALINE PHOSPHATASE 61 IU/L (46-116); ANION GAP 2 (8-16); ASPARTATE AMINO TRANSFERASE 21 U/L (10-37); BILIRUBIN,TOTAL 1.1 MG/DL (0.1-1.0); BLOOD UREA NITROGEN 22 MG/DL (7-18); BUN/CREATININE RATIO 17.9 (6.6-38.0); CALCIUM 8.5 MG/DL (8.5-10.1); CHLORIDE 108 MMOL/L (99-107); CREATININE 1.23 MG/DL (0.40-0.90); GLUCOSE 100 MG/DL (70-104); MAGNESIUM 1.9 MG/DL (1.5-2.4); PHOSPHORUS 4.1 MG/DL (2.3-4.5); POTASSIUM 4.4 MMOL/L (3.5-5.1); SODIUM 143 MMOL/L (135-145); TOTAL CARBON DIOXIDE 33.2 MMOL/L (24-32); TOTAL PROTEIN 5.3 G/DL (6.4-8.2); eGFR 43 ML/MIN
--- NOTE | 2018-12-27 05:05 | NUR ---
Ptt at 0400 was 45 [place], no change in rate
--- NOTE | 2018-12-27 06:28 | NUR ---
Problems reprioritized. Patient report given, questions answered & plan of care reviewed with Dominick REY.
[2018-12-27] MEDS: heparin 25,000 UNIT/250ml bag 250 ML IV SCH (06:35)
--- NOTE | 2018-12-27 06:53 | NUR ---
Patient in room PCU 3019. I have received report from Salome REY and had the opportunity to ask questions and assume patient care.
[2018-12-27] MEDS ORDERED: epoetin 20,000 units/ml inj SQ ONE (07:05)
[2018-12-27] MEDS: pantoprazole 40mg Tablet.DR PO SCH (07:30)
[2018-12-27 07:58] VITALS: BP 105/54
[2018-12-27] MEDS: lactobacillus rhamnosus 10,000 MMU CELLS/CAPSULE PO SCH ×2 (08:00→20:33)
[2018-12-27] MEDS: docusate sod 100mg capsule PO SCH ×2 (08:00→20:33)
[2018-12-27] MEDS: carvedilol 6.25mg tablet PO SCH ×2 (08:00→20:33)
[2018-12-27] MEDS: amiodarone 200mg tablet PO SCH (08:00)
[2018-12-27] MEDS: busPIRone 5mg tablet PO SCH ×2 (08:00→20:34)
--- NOTE | 2018-12-27 11:11 | NUR ---
pt refusing meds, took off O2, threw Wick on the floor, refusing breakfast, told RN she was killing babies and the big people. O2 sats dropped into 50's per finger probe, ear probe reported 81. O2 placed back on pt. O2 up to 92% 3L NC
[2018-12-27 11:42] VITALS: BP 113/44
[2018-12-27 11:51] LABS: HEMATOCRIT 22.6 % (35.0-45.0); HEMOGLOBIN 7.6 g/dl (12.0-16.0); MEAN CORPUSCULAR HEMOGLOBIN 30.4 PG (27.0-31.0); MEAN CORPUSCULAR HGB CONC 33.5 g/dL (33.0-36.5); MEAN CORPUSCULAR VOLUME 90.5 FL (78-98); MEAN PLATELET VOLUME 8.1 FL (7.4-10.4); PLATELET COUNT 164 X10'3 (140-440); RED BLOOD COUNT 2.49 X10'6 (4.20-5.60); RED CELL DISTRIBUTION WIDTH 15.9 % (11.5-14.5); WHITE BLOOD COUNT 6.6 X10'3 (4.5-11.0)
[2018-12-27 12:01] LABS: % IRON SATURATION 27 % (11-46); IRON 39 UG/DL (49-151); TOTAL IRON BINDING CAPACITY 147 UG/DL (259-388)
[2018-12-27 12:44] LABS: FERRITIN 1392 NG/ML (8-252)
--- NOTE | 2018-12-27 12:44 | NUR ---
Pt cardiac PTT came back at 152. Lab redrawn as previous last few were within range. Awaiting new results.
[2018-12-27] MEDS: HYDROcodone/acetaminophen 5mg/325mg tablet PO PRN ×3 (14:01→22:38)
[2018-12-27 15:15] VITALS: BP 146/68
[2018-12-27 17:47] LABS: HEMATOCRIT 23.4 % (35.0-45.0); HEMOGLOBIN 7.7 g/dl (12.0-16.0); MEAN PLATELET VOLUME 7.2 FL (7.4-10.4); PLATELET COUNT 240 X10'3 (140-440); RED BLOOD COUNT 2.57 X10'6 (4.20-5.60); WHITE BLOOD COUNT 8.8 X10'3 (4.5-11.0)
--- NOTE | 2018-12-27 18:38 | NUR ---
Problems reprioritized. Patient report given, questions answered & plan of care reviewed with Kacy REY.
--- NOTE | 2018-12-27 18:40 | NUR ---
Patient in room PCU 3019. I have received report from CANDIDO Tan and had the opportunity to ask questions and assume patient care.
[2018-12-27 19:00] VITALS: BP 144/68
[2018-12-27] MEDS: prazosin 1mg capsule PO SCH (20:33)
[2018-12-27] MEDS: sennosides/docusate sodium tablet PO SCH (20:34)
[2018-12-27] MEDS: traZODone 50mg tablet PO SCH (20:34)
[2018-12-27] MEDS ORDERED: warfarin 1mg tablet PO ONE (21:00)
[2018-12-27 23:00] VITALS: BP 122/58
[2018-12-28] VITALS (7 sets, daily range): BP systolic 111–183; BP diastolic 52–82
[2018-12-28 00:43] LABS: BASOPHILS % (AUTO) 0.5 % (0-1); EOSINOPHILS # (AUTO) 0.2 X10'3 (0-0.9); EOSINOPHILS % (AUTO) 3.1 % (0-6); LYMPHOCYTES # (AUTO) 1.2 X10'3 (1.1-4.8); LYMPHOCYTES % (AUTO) 15.9 % (21-51); MEAN CORPUSCULAR HEMOGLOBIN 30.1 PG (27.0-31.0); MEAN CORPUSCULAR HGB CONC 33.1 g/dL (33.0-36.5); MEAN CORPUSCULAR VOLUME 90.9 FL (78-98); MEAN PLATELET VOLUME 7.5 FL (7.4-10.4); MONOCYTES % (AUTO) 13.6 % (2-12); NEUTROPHILS % (AUTO) 66.9 % (42-75); PLATELET COUNT 198 X10'3 (140-440); RED BLOOD COUNT 2.22 X10'6 (4.20-5.60); RED CELL DISTRIBUTION WIDTH 15.9 % (11.5-14.5); WHITE BLOOD COUNT 7.5 X10'3 (4.5-11.0)
[2018-12-28 00:48] LABS: HEMATOCRIT 20.2 % (35.0-45.0); HEMOGLOBIN 6.7 g/dl (12.0-16.0)
[2018-12-28 01:05] LABS: ALANINE AMINOTRANSFERASE 21 U/L (12-78); ALBUMIN/GLOBULIN RATIO 0.6 (1.1-1.5); ALKALINE PHOSPHATASE 58 IU/L (46-116); ANION GAP -1 (8-16); ASPARTATE AMINO TRANSFERASE 24 U/L (10-37); BILIRUBIN,TOTAL 1.2 MG/DL (0.1-1.0); BLOOD UREA NITROGEN 25 MG/DL (7-18); BUN/CREATININE RATIO 18.5 (6.6-38.0); CALCIUM 8.4 MG/DL (8.5-10.1); CHLORIDE 107 MMOL/L (99-107); CREATININE 1.35 MG/DL (0.40-0.90); GLUCOSE 91 MG/DL (70-104); MAGNESIUM 1.9 MG/DL (1.5-2.4); PHOSPHORUS 3.7 MG/DL (2.3-4.5); POTASSIUM 4.3 MMOL/L (3.5-5.1); SODIUM 140 MMOL/L (135-145); TOTAL CARBON DIOXIDE 33.5 MMOL/L (24-32); TOTAL PROTEIN 5.3 G/DL (6.4-8.2); eGFR 39 ML/MIN
--- NOTE | 2018-12-28 01:05 | NUR ---
Critical H&H labs reported to MD. 1 unit of blood to be ordered and administered per MD orders. Will continue to monitor closely.
[2018-12-28] MEDS: vancomycin 125mg/5ml ORAL solution 5ml UD bottle PO SCH ×4 (03:09→20:10)
--- NOTE | 2018-12-28 06:30 | NUR ---
Problems reprioritized. Patient report given, questions answered & plan of care reviewed with CANDIDO Diaz.
--- NOTE | 2018-12-28 07:31 | NUR ---
Pt slightly agitated this AM during bedside shift report. Pt appears to be slightly confused and agitated but safe in bed. RN told production estimator that she thinks a sitter is beneficial for today. RN then called back into room because pt was out of bed walking into another room. Picc line had been pulled out of her arm with Heparin gtt and Blood still running. Pt disconnected herself from monitors. Nurses aid pulled from the floor to sit at bedside with pt.
--- NOTE | 2018-12-28 07:57 | NUR ---
Per primary RN request, attempt to administer AM medications at this time. Pt refused. Offered patient food and drink, pt declined.
--- NOTE | 2018-12-28 09:20 | NUR ---
pt yelling and stating she is wanting to go home and she has every right to go home she wants to leave AMA. Pt is not in her right mind. Pts friend is by her side and states he can take her home. Talked to Dr. Ocasio on the phone and MD states to call pts sister as she is the one that calls the shots and has stated she does not want her coming home. head worker advised pts friend that he is under no circumstance to take pt home at this time because she is not in her right mind. Pts friend stated he understood. RN called pts sister Yuly Arce [phone] twice and left a message to call RN back DARIUS.
--- NOTE | 2018-12-28 10:00 | NUR ---
pts sister called RN back and stated she is the pts MPOA. Pt is not to leave the hospital without her permission. Pt spoke to sister on the phone and pt seemed to calm down.
[2018-12-28] MEDS ORDERED: ziprasidone IM 20mg inj **IM only IM ONE (10:30)
--- NOTE | 2018-12-28 11:00 | NUR ---
Pt refused 1100 VS assessment.
[2018-12-28] MEDS: docusate sod 100mg capsule PO SCH ×2 (11:37→20:10)
[2018-12-28] MEDS: pantoprazole 40mg Tablet.DR PO SCH (11:38)
[2018-12-28] MEDS: amiodarone 200mg tablet PO SCH (11:38)
[2018-12-28] MEDS: LORazepam 1 MG tablet PO PRN (11:38)
[2018-12-28] MEDS: carvedilol 6.25mg tablet PO SCH ×2 (11:39→20:10)
[2018-12-28] MEDS: busPIRone 5mg tablet PO SCH ×2 (11:40→20:10)
[2018-12-28] MEDS: lactobacillus rhamnosus 10,000 MMU CELLS/CAPSULE PO SCH ×2 (11:42→20:10)
--- NOTE | 2018-12-28 11:50 | NUR ---
Pt calm and cooperative at this time. Pt calmly took her AM meds. Asked pt is she would be willing to wear her heart monitor and she stated "not right now". Will try to place heart monitor later. Pt sitting in a wheelchair outside of her room with sitter next to her.
[2018-12-28 16:24] LABS: BASOPHILS % (AUTO) 0.8 % (0-1); EOSINOPHILS # (AUTO) 0.1 X10'3 (0-0.9); HEMATOCRIT 33.5 % (35.0-45.0); HEMOGLOBIN 11.1 g/dl (12.0-16.0); LYMPHOCYTES # (AUTO) 0.9 X10'3 (1.1-4.8); LYMPHOCYTES % (AUTO) 14.4 % (21-51); MEAN CORPUSCULAR HEMOGLOBIN 30.2 PG (27.0-31.0); MEAN CORPUSCULAR HGB CONC 33.2 g/dL (33.0-36.5); MEAN CORPUSCULAR VOLUME 90.8 FL (78-98); MEAN PLATELET VOLUME 7.8 FL (7.4-10.4); MONOCYTES # (AUTO) 0.6 X10'3 (0-0.9); MONOCYTES % (AUTO) 10.4 % (2-12); NEUTROPHILS # (AUTO) 4.3 X10'3 (1.8-7.7); NEUTROPHILS % (AUTO) 72.4 % (42-75); PLATELET COUNT 179 X10'3 (140-440); RED BLOOD COUNT 3.69 X10'6 (4.20-5.60); RED CELL DISTRIBUTION WIDTH 15.9 % (11.5-14.5); WHITE BLOOD COUNT 5.9 X10'3 (4.5-11.0)
[2018-12-28 16:36] LABS: ALANINE AMINOTRANSFERASE 23 U/L (12-78); ALBUMIN 2.3 G/DL (3.4-5.0); ALBUMIN/GLOBULIN RATIO 0.6 (1.1-1.5); ALKALINE PHOSPHATASE 66 IU/L (46-116); ANION GAP 3 (8-16); ASPARTATE AMINO TRANSFERASE 31 U/L (10-37); BILIRUBIN,TOTAL 1.4 MG/DL (0.1-1.0); BLOOD UREA NITROGEN 25 MG/DL (7-18); BUN/CREATININE RATIO 18.2 (6.6-38.0); CALCIUM 8.8 MG/DL (8.5-10.1); CHLORIDE 105 MMOL/L (99-107); CREATININE 1.37 MG/DL (0.40-0.90); GLUCOSE 105 MG/DL (70-104); POTASSIUM 4.3 MMOL/L (3.5-5.1); SODIUM 140 MMOL/L (135-145); TOTAL CARBON DIOXIDE 32.3 MMOL/L (24-32); eGFR 38 ML/MIN
[2018-12-28 16:48] LABS: TOTAL CELLS COUNTED 100
[2018-12-28 16:54] LABS: ANISOCYTOSIS 1+; PLATELET ESTIMATE NORMAL; POLYCHROMASIA FEW
--- NOTE | 2018-12-28 18:24 | NUR ---
Problems reprioritized. Patient report given, questions answered & plan of care reviewed with CANDIDO Quiros. Addendum: 12/28/18 at 1825 by Myranda Davis RN Correction: Patient in room [facility] 3019. I have received report from CANDIDO Quiros and had the opportunity to ask questions and assume patient care.
--- NOTE | 2018-12-28 18:36 | NUR ---
pt remained calm throughout the afternoon. Allowed RN to place another IV and get labs. Labs resulted close to shift change, notified night RNMyranda. Carter not need earlier this shift. PO Ativan given with AM meds with good result. Pt remains confused. Safety maintained with sitter at bedside.
[2018-12-28] MEDS: traZODone 50mg tablet PO SCH (20:10)
[2018-12-28] MEDS: sennosides/docusate sodium tablet PO SCH (20:10)
[2018-12-28] MEDS: prazosin 1mg capsule PO SCH (20:10)
[2018-12-28] MEDS: HYDROcodone/acetaminophen 5mg/325mg tablet PO PRN (20:12)
[2018-12-29] MEDS: vancomycin 125mg/5ml ORAL solution 5ml UD bottle PO SCH ×4 (02:53→21:13)
[2018-12-29 03:00] VITALS: BP 143/57
--- NOTE | 2018-12-29 05:24 | NUR ---
Patient is refusing tele monitoring of heart due to increased confusion. Will continue to monitor. Sitter at bedside to ensure safety.
[2018-12-29] MEDS: LORazepam 2 mg/ml vial IV PRN (05:38)
[2018-12-29 06:02] LABS: BASOPHILS % (AUTO) 0.6 % (0-1); EOSINOPHILS # (AUTO) 0.2 X10'3 (0-0.9); EOSINOPHILS % (AUTO) 2.6 % (0-6); HEMOGLOBIN 7.3 g/dl (12.0-16.0); LYMPHOCYTES # (AUTO) 1.3 X10'3 (1.1-4.8); LYMPHOCYTES % (AUTO) 17.7 % (21-51); MEAN CORPUSCULAR HEMOGLOBIN 30.5 PG (27.0-31.0); MEAN CORPUSCULAR HGB CONC 33.7 g/dL (33.0-36.5); MEAN CORPUSCULAR VOLUME 90.5 FL (78-98); MEAN PLATELET VOLUME 7.5 FL (7.4-10.4); MONOCYTES # (AUTO) 0.9 X10'3 (0-0.9); MONOCYTES % (AUTO) 12.3 % (2-12); NEUTROPHILS # (AUTO) 4.9 X10'3 (1.8-7.7); NEUTROPHILS % (AUTO) 66.8 % (42-75); PLATELET COUNT 213 X10'3 (140-440); RED BLOOD COUNT 2.38 X10'6 (4.20-5.60); RED CELL DISTRIBUTION WIDTH 16.2 % (11.5-14.5); WHITE BLOOD COUNT 7.4 X10'3 (4.5-11.0)
[2018-12-29] MEDS ORDERED: ziprasidone IM 20mg inj **IM only IM ONE (06:05)
[2018-12-29 06:15] LABS: HEMATOCRIT 21.5 % (35.0-45.0)
[2018-12-29 06:16] LABS: ALANINE AMINOTRANSFERASE 22 U/L (12-78); ALBUMIN/GLOBULIN RATIO 0.6 (1.1-1.5); ALKALINE PHOSPHATASE 59 IU/L (46-116); ANION GAP 2 (8-16); ASPARTATE AMINO TRANSFERASE 25 U/L (10-37); BILIRUBIN,TOTAL 0.9 MG/DL (0.1-1.0); BLOOD UREA NITROGEN 24 MG/DL (7-18); BUN/CREATININE RATIO 18.3 (6.6-38.0); CALCIUM 8.5 MG/DL (8.5-10.1); CHLORIDE 107 MMOL/L (99-107); CREATININE 1.31 MG/DL (0.40-0.90); GLUCOSE 89 MG/DL (70-104); MAGNESIUM 1.9 MG/DL (1.5-2.4); PHOSPHORUS 4.2 MG/DL (2.3-4.5); POTASSIUM 4.3 MMOL/L (3.5-5.1); SODIUM 141 MMOL/L (135-145); TOTAL CARBON DIOXIDE 32.4 MMOL/L (24-32); TOTAL PROTEIN 5.3 G/DL (6.4-8.2); eGFR 40 ML/MIN
--- NOTE | 2018-12-29 06:25 | NUR ---
Problems reprioritized. Patient report given, questions answered & plan of care reviewed with CANDIDO Paul.
--- NOTE | 2018-12-29 06:30 | NUR ---
Critical lab results reported to Kianna [facility] of Hct 21.5 and Hgb 7.3 and INR 4.0. Will continue to monitor.
--- NOTE | 2018-12-29 06:31 | NUR ---
Patient has allowed tele monitor to be placed back on for heart monitoring.
[2018-12-29 07:00] VITALS: BP 149/59
[2018-12-29 07:16] LABS: TOTAL CELLS COUNTED 100
[2018-12-29 07:17] LABS: ANISOCYTOSIS 1+; HYPOCHROMASIA 1+; PLATELET ESTIMATE NORMAL; POLYCHROMASIA 1+; TOXIC GRANULATION 1+
[2018-12-29] MEDS: busPIRone 5mg tablet PO SCH ×2 (08:24→21:14)
[2018-12-29] MEDS: docusate sod 100mg capsule PO SCH ×2 (08:24→21:14)
[2018-12-29] MEDS: pantoprazole 40mg Tablet.DR PO SCH (08:24)
[2018-12-29] MEDS: carvedilol 6.25mg tablet PO SCH ×2 (08:24→21:13)
[2018-12-29] MEDS: lactobacillus rhamnosus 10,000 MMU CELLS/CAPSULE PO SCH ×2 (08:24→21:13)
[2018-12-29] MEDS: amiodarone 200mg tablet PO SCH (08:24)
[2018-12-29 11:00] VITALS: BP 153/68
[2018-12-29 15:00] VITALS: BP 153/72
--- NOTE | 2018-12-29 18:18 | NUR ---
Problems reprioritized. Patient report given, questions answered & plan of care reviewed with Gretchen REY. Patient stable at transfer of care.
[2018-12-29 19:00] VITALS: BP 157/66
[2018-12-29] MEDS: sennosides/docusate sodium tablet PO SCH (21:12)
[2018-12-29] MEDS: traZODone 50mg tablet PO SCH (21:13)
[2018-12-29] MEDS: HYDROcodone/acetaminophen 5mg/325mg tablet PO PRN (21:13)
[2018-12-29] MEDS: prazosin 1mg capsule PO SCH (21:14)
[2018-12-29 23:00] VITALS: BP 136/58
[2018-12-30] MEDS: vancomycin 125mg/5ml ORAL solution 5ml UD bottle PO SCH ×4 (02:19→20:19)
[2018-12-30 03:00] VITALS: BP 136/54
[2018-12-30] MEDS: HYDROcodone/acetaminophen 5mg/325mg tablet PO PRN ×2 (04:43→21:15)
--- NOTE | 2018-12-30 06:15 | NUR ---
Patient in room PCU 3019. I have received report from Gretchen REY and had the opportunity to ask questions and assume patient care.
[2018-12-30 06:55] LABS: BASOPHILS % (AUTO) 0.6 % (0-1); EOSINOPHILS # (AUTO) 0.2 X10'3 (0-0.9); EOSINOPHILS % (AUTO) 4.1 % (0-6); HEMATOCRIT 22.4 % (35.0-45.0); HEMOGLOBIN 7.4 g/dl (12.0-16.0); LYMPHOCYTES % (AUTO) 17.8 % (21-51); MEAN CORPUSCULAR HEMOGLOBIN 30.6 PG (27.0-31.0); MEAN CORPUSCULAR HGB CONC 32.9 g/dL (33.0-36.5); MEAN PLATELET VOLUME 7.6 FL (7.4-10.4); MONOCYTES # (AUTO) 0.8 X10'3 (0-0.9); MONOCYTES % (AUTO) 15.3 % (2-12); NEUTROPHILS # (AUTO) 3.4 X10'3 (1.8-7.7); NEUTROPHILS % (AUTO) 62.2 % (42-75); PLATELET COUNT 208 X10'3 (140-440); RED BLOOD COUNT 2.41 X10'6 (4.20-5.60); RED CELL DISTRIBUTION WIDTH 16.6 % (11.5-14.5); WHITE BLOOD COUNT 5.5 X10'3 (4.5-11.0)
[2018-12-30 07:00] VITALS: BP 110/48
[2018-12-30 07:17] LABS: ALANINE AMINOTRANSFERASE 20 U/L (12-78); ALBUMIN/GLOBULIN RATIO 0.6 (1.1-1.5); ALKALINE PHOSPHATASE 59 IU/L (46-116); ANION GAP 4 (8-16); ASPARTATE AMINO TRANSFERASE 21 U/L (10-37); BILIRUBIN,TOTAL 0.9 MG/DL (0.1-1.0); BLOOD UREA NITROGEN 25 MG/DL (7-18); BUN/CREATININE RATIO 18.2 (6.6-38.0); CALCIUM 8.3 MG/DL (8.5-10.1); CHLORIDE 109 MMOL/L (99-107); CREATININE 1.37 MG/DL (0.40-0.90); GLUCOSE 92 MG/DL (70-104); MAGNESIUM 1.9 MG/DL (1.5-2.4); POTASSIUM 4.2 MMOL/L (3.5-5.1); SODIUM 146 MMOL/L (135-145); TOTAL CARBON DIOXIDE 33.4 MMOL/L (24-32); TOTAL PROTEIN 5.2 G/DL (6.4-8.2); eGFR 38 ML/MIN
[2018-12-30] MEDS: busPIRone 5mg tablet PO SCH ×2 (07:40→20:19)
[2018-12-30] MEDS: docusate sod 100mg capsule PO SCH ×2 (07:40→20:18)
[2018-12-30] MEDS: amiodarone 200mg tablet PO SCH (07:40)
[2018-12-30] MEDS: lactobacillus rhamnosus 10,000 MMU CELLS/CAPSULE PO SCH ×2 (07:40→20:19)
[2018-12-30] MEDS: carvedilol 6.25mg tablet PO SCH ×2 (07:40→20:16)
[2018-12-30] MEDS: pantoprazole 40mg Tablet.DR PO SCH (07:40)
[2018-12-30 09:02] LABS: TOTAL CELLS COUNTED 100
[2018-12-30 09:03] LABS: ANISOCYTOSIS 1+; PLATELET ESTIMATE NORMAL; POLYCHROMASIA 1+
[2018-12-30 09:04] LABS: HYPOCHROMASIA 1+; LARGE PLATELETS FEW
[2018-12-30 11:00] VITALS: BP 125/54
[2018-12-30] MEDS ORDERED: benzocaine/menthol oral lozeng 1 EACH BOX MM PRN (11:00)
--- NOTE | 2018-12-30 11:05 | NUR ---
reassessment: Pt still AOx1 w/ hypoxic encephalopathy PO 25-50% and fluctuates to refusal of meals. Per RN pt family bringing in food from outside to actually eating well. LBM 12/27 receiving c.diff treatment but also senna and refused colace this AM. Likely meeting needs given new PO diet information. Will continue to monitor. Rec: 1. continue regular diet 2. hold bowel care if diarrhea w/ c.diff DX 3. wt per rx Addendum: 12/30/18 at [address] Amended: Links added.
[2018-12-30 15:00] VITALS: BP 167/73
[2018-12-30 15:27] LABS: OCCULT BLOOD STOOL NEGATIVE (Neg)
--- NOTE | 2018-12-30 18:34 | NUR ---
Patient in room PCU 3019. I have received report from CANDIDO Paul and had the opportunity to ask questions and assume patient care.
--- NOTE | 2018-12-30 18:35 | NUR ---
Problems reprioritized. Patient report given, questions answered & plan of care reviewed with Rama REY. Patient stable at transfer of care.
[2018-12-30 19:00] VITALS: BP 136/68
[2018-12-30] MEDS: acetaminophen 325mg tablet PO PRN (20:17)
[2018-12-30] MEDS: prazosin 1mg capsule PO SCH (20:19)
[2018-12-30] MEDS: traZODone 50mg tablet PO SCH (20:19)
[2018-12-30] MEDS: sennosides/docusate sodium tablet PO SCH (20:19)
[2018-12-30] MEDS ORDERED: warfarin 4mg tablet PO ONE (21:00)
[2018-12-30 23:00] VITALS: BP 110/47
[2018-12-31] MEDS: vancomycin 125mg/5ml ORAL solution 5ml UD bottle PO SCH ×4 (01:51→20:29)
[2018-12-31 03:00] VITALS: BP 125/58
[2018-12-31 05:54] LABS: BASOPHILS % (AUTO) 0.8 % (0-1); EOSINOPHILS # (AUTO) 0.2 X10'3 (0-0.9); EOSINOPHILS % (AUTO) 4.5 % (0-6); HEMATOCRIT 22.4 % (35.0-45.0); HEMOGLOBIN 7.3 g/dl (12.0-16.0); LYMPHOCYTES # (AUTO) 1.2 X10'3 (1.1-4.8); LYMPHOCYTES % (AUTO) 22.9 % (21-51); MEAN CORPUSCULAR HEMOGLOBIN 30.2 PG (27.0-31.0); MEAN CORPUSCULAR HGB CONC 32.5 g/dL (33.0-36.5); MEAN CORPUSCULAR VOLUME 92.9 FL (78-98); MEAN PLATELET VOLUME 7.4 FL (7.4-10.4); MONOCYTES # (AUTO) 0.7 X10'3 (0-0.9); MONOCYTES % (AUTO) 12.8 % (2-12); NEUTROPHILS # (AUTO) 3.2 X10'3 (1.8-7.7); PLATELET COUNT 209 X10'3 (140-440); RED BLOOD COUNT 2.41 X10'6 (4.20-5.60); RED CELL DISTRIBUTION WIDTH 16.4 % (11.5-14.5); WHITE BLOOD COUNT 5.5 X10'3 (4.5-11.0)
[2018-12-31 06:00] VITALS: BP 124/58
[2018-12-31 06:25] LABS: ALANINE AMINOTRANSFERASE 17 U/L (12-78); ALBUMIN 2.1 G/DL (3.4-5.0); ALBUMIN/GLOBULIN RATIO 0.7 (1.1-1.5); ALKALINE PHOSPHATASE 58 IU/L (46-116); ANION GAP 2 (8-16); ASPARTATE AMINO TRANSFERASE 20 U/L (10-37); BILIRUBIN,TOTAL 0.8 MG/DL (0.1-1.0); BLOOD UREA NITROGEN 21 MG/DL (7-18); BUN/CREATININE RATIO 14.5 (6.6-38.0); CALCIUM 8.3 MG/DL (8.5-10.1); CHLORIDE 108 MMOL/L (99-107); CREATININE 1.45 MG/DL (0.40-0.90); GLUCOSE 87 MG/DL (70-104); MAGNESIUM 1.9 MG/DL (1.5-2.4); POTASSIUM 4.2 MMOL/L (3.5-5.1); SODIUM 145 MMOL/L (135-145); TOTAL PROTEIN 5.3 G/DL (6.4-8.2); eGFR 36 ML/MIN
--- NOTE | 2018-12-31 06:25 | NUR ---
Problems reprioritized. Patient report given, questions answered & plan of care reviewed with CANDIDO Paul.
--- NOTE | 2018-12-31 06:40 | NUR ---
Patient in room PCU 3019. I have received report from Rama REY and had the opportunity to ask questions and assume patient care.
--- NOTE | 2018-12-31 06:55 | NUR ---
Patient in room PCU 3019. I have received report from Rama REY and had the opportunity to ask questions and assume patient care.
[2018-12-31 07:06] LABS: ANISOCYTOSIS 1+; PLATELET ESTIMATE NORMAL; TOTAL CELLS COUNTED 100
[2018-12-31 07:07] LABS: POLYCHROMASIA 1+
[2018-12-31] MEDS: busPIRone 5mg tablet PO SCH ×2 (08:18→20:28)
[2018-12-31] MEDS: carvedilol 6.25mg tablet PO SCH ×2 (08:18→20:29)
[2018-12-31] MEDS: pantoprazole 40mg Tablet.DR PO SCH (08:18)
[2018-12-31] MEDS: lactobacillus rhamnosus 10,000 MMU CELLS/CAPSULE PO SCH ×2 (08:18→20:28)
[2018-12-31] MEDS: amiodarone 200mg tablet PO SCH (08:18)
[2018-12-31] MEDS: docusate sod 100mg capsule PO SCH ×2 (08:18→20:00)
[2018-12-31 11:00] VITALS: BP 155/69
[2018-12-31 15:00] VITALS: BP 179/77
--- NOTE | 2018-12-31 15:36 | NUR ---
Called Dr. Oviedo re: elevated BP of 179/77. Pt. denies pain or discomfort. No PRN blood pressure meds ordered. Unable to reach via phone; left voicemail and call back ext. number. Awaiting MD response.
--- NOTE | 2018-12-31 15:40 | NUR ---
Received call from Dr. Oviedo. Advised to monitor patient BP. No new orders.
[2018-12-31 18:00] VITALS: BP 163/75
--- NOTE | 2018-12-31 18:30 | NUR ---
Problems reprioritized. Patient report given, questions answered & plan of care reviewed with Que REY. Patient stable at transfer of care.
--- NOTE | 2018-12-31 18:30 | NUR ---
Problems reprioritized. Patient report given, questions answered & plan of care reviewed with Cristine REY.
--- NOTE | 2018-12-31 18:31 | NUR ---
Patient in room PCU 3019. I have received report from Ed and had the opportunity to ask questions and assume patient care.
--- NOTE | 2018-12-31 18:33 | NUR ---
[place] documentation: I have reviewed and agree with interventions, assessments performed and documented by Enrique REY. [place] Medication Administration: For this medication-pass time frame, medication were reviewed, dispensed, administered and documented per hospital policy by Enrique REY .
[2018-12-31] MEDS: prazosin 1mg capsule PO SCH (20:28)
[2018-12-31] MEDS: traZODone 50mg tablet PO SCH (20:29)
[2018-12-31] MEDS: sennosides/docusate sodium tablet PO SCH (20:30)
[2018-12-31] MEDS ORDERED: warfarin 4mg tablet PO ONE (21:00)
[2018-12-31 22:00] VITALS: BP 141/57
[2018-12-31] MEDS: HYDROcodone/acetaminophen 5mg/325mg tablet PO PRN (22:56)
[2019-01-01] MEDS: HYDROcodone/acetaminophen 5mg/325mg tablet PO PRN (00:40)
[2019-01-01 05:47] LABS: BASOPHILS % (AUTO) 0.6 % (0-1); EOSINOPHILS # (AUTO) 0.2 X10'3 (0-0.9); EOSINOPHILS % (AUTO) 4.5 % (0-6); HEMATOCRIT 22.6 % (35.0-45.0); HEMOGLOBIN 7.2 g/dl (12.0-16.0); LYMPHOCYTES # (AUTO) 1.4 X10'3 (1.1-4.8); LYMPHOCYTES % (AUTO) 27.2 % (21-51); MEAN CORPUSCULAR HEMOGLOBIN 30.1 PG (27.0-31.0); MEAN CORPUSCULAR HGB CONC 32.1 g/dL (33.0-36.5); MEAN PLATELET VOLUME 7.4 FL (7.4-10.4); MONOCYTES # (AUTO) 0.8 X10'3 (0-0.9); NEUTROPHILS # (AUTO) 2.7 X10'3 (1.8-7.7); NEUTROPHILS % (AUTO) 52.7 % (42-75); PLATELET COUNT 200 X10'3 (140-440); RED CELL DISTRIBUTION WIDTH 17.3 % (11.5-14.5)
[2019-01-01 06:00] LABS: ALANINE AMINOTRANSFERASE 18 U/L (12-78); ALBUMIN/GLOBULIN RATIO 0.6 (1.1-1.5); ALKALINE PHOSPHATASE 59 IU/L (46-116); ANION GAP 0 (8-16); ASPARTATE AMINO TRANSFERASE 20 U/L (10-37); BILIRUBIN,TOTAL 0.7 MG/DL (0.1-1.0); BLOOD UREA NITROGEN 20 MG/DL (7-18); BUN/CREATININE RATIO 15.7 (6.6-38.0); CALCIUM 8.3 MG/DL (8.5-10.1); CHLORIDE 106 MMOL/L (99-107); CREATININE 1.27 MG/DL (0.40-0.90); GLUCOSE 91 MG/DL (70-104); MAGNESIUM 1.9 MG/DL (1.5-2.4); PHOSPHORUS 3.7 MG/DL (2.3-4.5); POTASSIUM 4.1 MMOL/L (3.5-5.1); SODIUM 142 MMOL/L (135-145); TOTAL PROTEIN 5.2 G/DL (6.4-8.2); eGFR 41 ML/MIN
--- NOTE | 2019-01-01 06:25 | NUR ---
Problems reprioritized. Patient report given, questions answered & plan of care reviewed with Laney REY and Mana REY.
--- NOTE | 2019-01-01 06:29 | NUR ---
Patient in room PCU 3019. I have received report from Cristine REY and had the opportunity to ask questions and assume patient care.
--- NOTE | 2019-01-01 06:31 | NUR ---
Patient in room PCU 3019. I have received report from Cristine REY and had the opportunity to ask questions and assume patient care.
[2019-01-01 07:00] VITALS: BP 101/46
[2019-01-01 07:19] LABS: PLATELET ESTIMATE NORMAL; TOTAL CELLS COUNTED 100
[2019-01-01 07:20] LABS: ANISOCYTOSIS 1+; ROULEAUX 1+
[2019-01-01 07:30] LABS: POLYCHROMASIA FEW
[2019-01-01] MEDS: amiodarone 200mg tablet PO SCH (09:05)
[2019-01-01] MEDS: lactobacillus rhamnosus 10,000 MMU CELLS/CAPSULE PO SCH ×2 (09:05→20:47)
[2019-01-01] MEDS: pantoprazole 40mg Tablet.DR PO SCH (09:05)
[2019-01-01] MEDS: docusate sod 100mg capsule PO SCH ×2 (09:05→20:00)
[2019-01-01] MEDS: busPIRone 5mg tablet PO SCH ×2 (09:06→20:47)
[2019-01-01] MEDS: carvedilol 6.25mg tablet PO SCH ×2 (09:14→20:47)
[2019-01-01 11:00] VITALS: BP 143/53
--- NOTE | 2019-01-01 14:15 | NUR ---
Spoke with Tonny from Infection Control re: possible discontinuation of C. diff precautions. Per Tonny, Dr. Mcdonnell would like to monitor how pt. does off of ATB therapy for a few days first, and if pt. is asymptomatic, we will consider possible discontinuation of isolation.
[2019-01-01 15:00] VITALS: BP 171/64
[2019-01-01 18:00] VITALS: BP 157/55
--- NOTE | 2019-01-01 18:16 | NUR ---
Problems reprioritized. Patient report given, questions answered & plan of care reviewed with Cristine REY.
--- NOTE | 2019-01-01 18:31 | NUR ---
Patient in room PCU 3019. I have received report from Laney/Mana and had the opportunity to ask questions and assume patient care.
[2019-01-01] MEDS: sennosides/docusate sodium tablet PO SCH (20:43)
[2019-01-01] MEDS: prazosin 1mg capsule PO SCH (20:46)
[2019-01-01] MEDS: traZODone 50mg tablet PO SCH (20:47)
[2019-01-01] MEDS ORDERED: warfarin 1mg tablet PO ONE (21:00)
[2019-01-01 23:00] VITALS: BP 133/51
[2019-01-02 02:00] VITALS: BP 154/75
[2019-01-02 06:00] VITALS: BP 115/51
--- NOTE | 2019-01-02 06:17 | NUR ---
Problems reprioritized. Patient report given, questions answered & plan of care reviewed with Nellie.
--- NOTE | 2019-01-02 06:23 | NUR ---
Patient in room PCU 3019. I have received report from Cristine REY and had the opportunity to ask questions and assume patient care.
[2019-01-02 06:44] LABS: BASOPHILS % (AUTO) 0.6 % (0-1); EOSINOPHILS # (AUTO) 0.2 X10'3 (0-0.9); HEMATOCRIT 23.3 % (35.0-45.0); HEMOGLOBIN 7.5 g/dl (12.0-16.0); LYMPHOCYTES # (AUTO) 1.4 X10'3 (1.1-4.8); LYMPHOCYTES % (AUTO) 28.9 % (21-51); MEAN CORPUSCULAR HEMOGLOBIN 30.1 PG (27.0-31.0); MEAN CORPUSCULAR HGB CONC 32.4 g/dL (33.0-36.5); MEAN CORPUSCULAR VOLUME 92.9 FL (78-98); MEAN PLATELET VOLUME 7.5 FL (7.4-10.4); MONOCYTES # (AUTO) 0.7 X10'3 (0-0.9); MONOCYTES % (AUTO) 14.2 % (2-12); NEUTROPHILS # (AUTO) 2.5 X10'3 (1.8-7.7); NEUTROPHILS % (AUTO) 52.3 % (42-75); PLATELET COUNT 186 X10'3 (140-440); RED CELL DISTRIBUTION WIDTH 16.9 % (11.5-14.5); WHITE BLOOD COUNT 4.8 X10'3 (4.5-11.0)
[2019-01-02 07:02] LABS: ALANINE AMINOTRANSFERASE 17 U/L (12-78); ALBUMIN 2.2 G/DL (3.4-5.0); ALBUMIN/GLOBULIN RATIO 0.7 (1.1-1.5); ALKALINE PHOSPHATASE 59 IU/L (46-116); ANION GAP 2 (8-16); ASPARTATE AMINO TRANSFERASE 31 U/L (10-37); BILIRUBIN,TOTAL 0.9 MG/DL (0.1-1.0); BLOOD UREA NITROGEN 19 MG/DL (7-18); BUN/CREATININE RATIO 16.4 (6.6-38.0); CALCIUM 8.4 MG/DL (8.5-10.1); CHLORIDE 108 MMOL/L (99-107); CREATININE 1.16 MG/DL (0.40-0.90); GLUCOSE 84 MG/DL (70-104); MAGNESIUM 1.9 MG/DL (1.5-2.4); PHOSPHORUS 4.1 MG/DL (2.3-4.5); POTASSIUM 4.3 MMOL/L (3.5-5.1); SODIUM 144 MMOL/L (135-145); TOTAL CARBON DIOXIDE 34.5 MMOL/L (24-32); TOTAL PROTEIN 5.4 G/DL (6.4-8.2); eGFR 46 ML/MIN
[2019-01-02 08:10] LABS: TOTAL CELLS COUNTED 100
[2019-01-02 08:11] LABS: ANISOCYTOSIS 1+; PLATELET ESTIMATE NORMAL; POLYCHROMASIA FEW; ROULEAUX 1+
[2019-01-02] MEDS: pantoprazole 40mg Tablet.DR PO SCH (08:26)
[2019-01-02] MEDS: lactobacillus rhamnosus 10,000 MMU CELLS/CAPSULE PO SCH ×2 (08:26→20:17)
[2019-01-02] MEDS: busPIRone 5mg tablet PO SCH ×2 (08:26→20:17)
[2019-01-02] MEDS: docusate sod 100mg capsule PO SCH ×2 (08:26→20:16)
[2019-01-02] MEDS: amiodarone 200mg tablet PO SCH (08:26)
[2019-01-02] MEDS: carvedilol 6.25mg tablet PO SCH ×2 (08:26→20:19)
[2019-01-02 11:00] VITALS: BP 136/61
[2019-01-02 15:00] VITALS: BP 167/64
[2019-01-02 18:00] VITALS: BP 131/74
--- NOTE | 2019-01-02 18:20 | NUR ---
Problems reprioritized. Patient report given, questions answered & plan of care reviewed with Bonifacio REY.
--- NOTE | 2019-01-02 18:21 | NUR ---
Patient in room PCU 3019. I have received report from Laney REY and Ang and had the opportunity to ask questions and assume patient care.
[2019-01-02] MEDS: traZODone 50mg tablet PO SCH (20:17)
[2019-01-02] MEDS: prazosin 1mg capsule PO SCH (20:17)
[2019-01-02] MEDS ORDERED: warfarin 3mg tablet PO ONE (21:00)
[2019-01-02] MEDS: sennosides/docusate sodium tablet PO SCH (21:00)
[2019-01-02] MEDS: HYDROcodone/acetaminophen 5mg/325mg tablet PO PRN (21:58)
[2019-01-02 22:00] VITALS: BP 146/60
[2019-01-03 02:00] VITALS: BP 140/63
[2019-01-03 06:00] VITALS: BP 99/46
--- NOTE | 2019-01-03 06:00 | NUR ---
Patient in room PCU 3019. I have received report from Bonifacio REY and had the opportunity to ask questions and assume patient care.
--- NOTE | 2019-01-03 06:08 | NUR ---
Problems reprioritized. Patient report given, questions answered & plan of care reviewed with Sanna REY. Pt sleeping in bed, no s/s of distress.
[2019-01-03 06:18] LABS: BASOPHILS % (AUTO) 0.5 % (0-1); EOSINOPHILS # (AUTO) 0.2 X10'3 (0-0.9); EOSINOPHILS % (AUTO) 4.8 % (0-6); HEMATOCRIT 22.2 % (35.0-45.0); HEMOGLOBIN 7.1 g/dl (12.0-16.0); LYMPHOCYTES # (AUTO) 1.4 X10'3 (1.1-4.8); LYMPHOCYTES % (AUTO) 30.7 % (21-51); MEAN CORPUSCULAR HEMOGLOBIN 30.3 PG (27.0-31.0); MEAN CORPUSCULAR HGB CONC 32.2 g/dL (33.0-36.5); MEAN CORPUSCULAR VOLUME 94.3 FL (78-98); MEAN PLATELET VOLUME 7.5 FL (7.4-10.4); MONOCYTES # (AUTO) 0.7 X10'3 (0-0.9); MONOCYTES % (AUTO) 14.9 % (2-12); NEUTROPHILS # (AUTO) 2.2 X10'3 (1.8-7.7); NEUTROPHILS % (AUTO) 49.1 % (42-75); PLATELET COUNT 166 X10'3 (140-440); RED BLOOD COUNT 2.35 X10'6 (4.20-5.60); RED CELL DISTRIBUTION WIDTH 17.2 % (11.5-14.5); WHITE BLOOD COUNT 4.4 X10'3 (4.5-11.0)
[2019-01-03 06:48] LABS: ALANINE AMINOTRANSFERASE 14 U/L (12-78); ALBUMIN 2.1 G/DL (3.4-5.0); ALBUMIN/GLOBULIN RATIO 0.7 (1.1-1.5); ALKALINE PHOSPHATASE 58 IU/L (46-116); ANION GAP 4 (8-16); BILIRUBIN,TOTAL 0.8 MG/DL (0.1-1.0); BLOOD UREA NITROGEN 21 MG/DL (7-18); BUN/CREATININE RATIO 15.8 (6.6-38.0); CALCIUM 8.3 MG/DL (8.5-10.1); CHLORIDE 107 MMOL/L (99-107); CREATININE 1.33 MG/DL (0.40-0.90); GLUCOSE 88 MG/DL (70-104); SODIUM 145 MMOL/L (135-145); TOTAL CARBON DIOXIDE 34.2 MMOL/L (24-32); TOTAL PROTEIN 5.2 G/DL (6.4-8.2); eGFR 39 ML/MIN
[2019-01-03 07:08] LABS: ASPARTATE AMINO TRANSFERASE 34 U/L (10-37); PHOSPHORUS 4.4 MG/DL (2.3-4.5); POTASSIUM 4.3 MMOL/L (3.5-5.1)
[2019-01-03 08:02] LABS: ANISOCYTOSIS 1+; HYPOCHROMASIA 1+; PLATELET ESTIMATE NORMAL; POIKILOCYTOSIS 1+; POLYCHROMASIA 1+
[2019-01-03] MEDS: carvedilol 6.25mg tablet PO SCH ×2 (09:01→21:49)
[2019-01-03] MEDS: lactobacillus rhamnosus 10,000 MMU CELLS/CAPSULE PO SCH ×2 (09:01→21:49)
[2019-01-03] MEDS: amiodarone 200mg tablet PO SCH (09:02)
[2019-01-03] MEDS: pantoprazole 40mg Tablet.DR PO SCH (09:03)
[2019-01-03] MEDS: busPIRone 5mg tablet PO SCH ×2 (09:03→21:47)
[2019-01-03] MEDS: docusate sod 100mg capsule PO SCH ×2 (09:03→21:48)
[2019-01-03 11:00] VITALS: BP 133/56
--- NOTE | 2019-01-03 14:07 | NUR ---
reassessment: Pt PO has improved to 50-75% mostly closer to 75% avg meals likely meeting needs. AOx3 and anxious to get to rehab per MD note. LBM 01/03. Will continue to monitor. Rec: 1. continue regular diet 2. hold bowel care if diarrhea w/ c.diff DX 3. wt per rx Addendum: 01/03/19 at [address] Amended: Links added.
[2019-01-03 15:00] VITALS: BP 150/63
--- NOTE | 2019-01-03 18:00 | NUR ---
Problems reprioritized. Patient report given, questions answered & plan of care reviewed with Robles RN.
--- NOTE | 2019-01-03 18:40 | NUR ---
Patient in room PCU 3019. I have received report from Aria REY and had the opportunity to ask questions and assume patient care.
[2019-01-03 19:00] VITALS: BP 122/61
[2019-01-03] MEDS: prazosin 1mg capsule PO SCH (21:00)
[2019-01-03] MEDS: sennosides/docusate sodium tablet PO SCH (21:00)
[2019-01-03] MEDS ORDERED: warfarin 2.5mg tablet PO ONE (21:00)
[2019-01-03] MEDS: traZODone 50mg tablet PO SCH (21:50)
--- NOTE | 2019-01-03 21:56 | NUR ---
MINIPRESS HELD BP was 108/46 and HR 80, parameters are hold for SBP below 110
[2019-01-03 23:00] VITALS: BP 160/66
--- NOTE | 2019-01-04 | NUR ---
O2 DESAT pt disconnected O2 canula tubing, upon examination O2 sat was in the 40's, reattached O2 tubing and resumed 4L, patient's O2 sat climbed to [address] on continuos pulse ox through the tele box to prevent this from happening again.
[2019-01-04 03:00] VITALS: BP 144/66
[2019-01-04 06:00] VITALS: BP 122/61
--- NOTE | 2019-01-04 06:00 | NUR ---
Patient in room PCU 3019. I have received report from Robles RN and had the opportunity to ask questions and assume patient care.
--- NOTE | 2019-01-04 06:17 | NUR ---
Problems reprioritized. Patient report given, questions answered & plan of care reviewed with David REY.
[2019-01-04] MEDS: docusate sod 100mg capsule PO SCH ×2 (08:00→20:00)
[2019-01-04] MEDS: carvedilol 6.25mg tablet PO SCH ×2 (08:34→20:53)
[2019-01-04] MEDS: busPIRone 5mg tablet PO SCH ×2 (08:34→20:56)
[2019-01-04] MEDS: lactobacillus rhamnosus 10,000 MMU CELLS/CAPSULE PO SCH ×2 (08:34→20:55)
[2019-01-04] MEDS: pantoprazole 40mg Tablet.DR PO SCH (08:35)
[2019-01-04] MEDS: amiodarone 200mg tablet PO SCH (08:35)
[2019-01-04 11:00] VITALS: BP 165/65
[2019-01-04 16:00] VITALS: BP 194/84
--- NOTE | 2019-01-04 16:38 | NUR ---
It was reported to me that the pt. has a B/P in the 190s. I called Keaton Martinez and he gave me a Hydralazine PRN order of 10mg q6 for systolic over 180.
[2019-01-04] MEDS: hydrALAZINE 20mg/ml inj. IV PRN (17:20)
--- NOTE | 2019-01-04 18:45 | NUR ---
Problems reprioritized. Patient report given, questions answered & plan of care reviewed with Pat RN.
[2019-01-04 19:00] VITALS: BP 131/52
[2019-01-04] MEDS: sennosides/docusate sodium tablet PO SCH (20:55)
[2019-01-04] MEDS: prazosin 1mg capsule PO SCH (20:58)
[2019-01-04] MEDS: traZODone 50mg tablet PO SCH (20:58)
[2019-01-04] MEDS ORDERED: warfarin 1mg tablet PO ONE (21:00)
[2019-01-04 23:00] VITALS: BP 105/42
[2019-01-05] VITALS (7 sets, daily range): BP systolic 124–188; BP diastolic 53–84
--- NOTE | 2019-01-05 07:08 | NUR ---
Patient in room PCU 3019. I have received report from CANDIDO CHAPMAN and had the opportunity to ask questions and assume patient care.
[2019-01-05] MEDS: docusate sod 100mg capsule PO SCH ×2 (08:00→20:14)
[2019-01-05] MEDS: pantoprazole 40mg Tablet.DR PO SCH (09:06)
[2019-01-05] MEDS: busPIRone 5mg tablet PO SCH ×2 (09:07→20:13)
[2019-01-05] MEDS: amiodarone 200mg tablet PO SCH (09:08)
[2019-01-05] MEDS: carvedilol 6.25mg tablet PO SCH ×2 (09:08→20:14)
[2019-01-05] MEDS: lactobacillus rhamnosus 10,000 MMU CELLS/CAPSULE PO SCH ×2 (09:09→20:14)
[2019-01-05 09:12] LABS: ALANINE AMINOTRANSFERASE 23 U/L (12-78); ALBUMIN 2.6 G/DL (3.4-5.0); ALBUMIN/GLOBULIN RATIO 0.7 (1.1-1.5); ALKALINE PHOSPHATASE 64 IU/L (46-116); BILIRUBIN,TOTAL 1.2 MG/DL (0.1-1.0); BLOOD UREA NITROGEN 20 MG/DL (7-18); BUN/CREATININE RATIO 15.6 (6.6-38.0); CALCIUM 8.5 MG/DL (8.5-10.1); CHLORIDE 105 MMOL/L (99-107); CREATININE 1.28 MG/DL (0.40-0.90); TOTAL CARBON DIOXIDE 36.2 MMOL/L (24-32); TOTAL PROTEIN 6.2 G/DL (6.4-8.2); eGFR 41 ML/MIN
[2019-01-05 09:17] LABS: ANION GAP 3 (8-16); ASPARTATE AMINO TRANSFERASE 49 U/L (10-37); GLUCOSE 83 MG/DL (70-104); POTASSIUM 4.3 MMOL/L (3.5-5.1); SODIUM 144 MMOL/L (135-145)
[2019-01-05 09:26] LABS: BASOPHILS % (AUTO) 0.7 % (0-1); EOSINOPHILS # (AUTO) 0.2 X10'3 (0-0.9); HEMATOCRIT 25.6 % (35.0-45.0); HEMOGLOBIN 8.5 g/dl (12.0-16.0); LYMPHOCYTES # (AUTO) 1.3 X10'3 (1.1-4.8); LYMPHOCYTES % (AUTO) 26.2 % (21-51); MEAN CORPUSCULAR HEMOGLOBIN 30.8 PG (27.0-31.0); MEAN CORPUSCULAR HGB CONC 33.2 g/dL (33.0-36.5); MEAN CORPUSCULAR VOLUME 92.7 FL (78-98); MEAN PLATELET VOLUME 7.8 FL (7.4-10.4); MONOCYTES # (AUTO) 0.7 X10'3 (0-0.9); MONOCYTES % (AUTO) 12.8 % (2-12); NEUTROPHILS # (AUTO) 2.9 X10'3 (1.8-7.7); NEUTROPHILS % (AUTO) 56.3 % (42-75); PLATELET COUNT 200 X10'3 (140-440); RED BLOOD COUNT 2.76 X10'6 (4.20-5.60); RED CELL DISTRIBUTION WIDTH 17.1 % (11.5-14.5); WHITE BLOOD COUNT 5.1 X10'3 (4.5-11.0)
[2019-01-05 11:03] LABS: ANISOCYTOSIS 1+; HYPOCHROMASIA 1+; PLATELET ESTIMATE NORMAL; POLYCHROMASIA 1+; TEAR DROP CELLS 1+; TOTAL CELLS COUNTED 100
--- NOTE | 2019-01-05 18:09 | NUR ---
Problems reprioritized. Patient report given, questions answered & plan of care reviewed with aye edwards.
--- NOTE | 2019-01-05 18:10 | NUR ---
Patient in room PCU 3019. I have received report from CANDIDO Ralph and had the opportunity to ask questions and assume patient care.
[2019-01-05] MEDS: hydrALAZINE 20mg/ml inj. IV PRN (19:53)
[2019-01-05] MEDS: traZODone 50mg tablet PO SCH (20:13)
[2019-01-05] MEDS: prazosin 1mg capsule PO SCH (20:14)
[2019-01-05] MEDS: sennosides/docusate sodium tablet PO SCH (20:14)
[2019-01-05] MEDS ORDERED: warfarin 1mg tablet PO ONE (21:00)
[2019-01-06 03:00] VITALS: BP 123/56
[2019-01-06 06:00] VITALS: BP 141/60
--- NOTE | 2019-01-06 06:38 | NUR ---
Problems reprioritized. Patient report given, questions answered & plan of care reviewed with CANDIDO Ralph.
--- NOTE | 2019-01-06 06:56 | NUR ---
Patient in room PCU 3019. I have received report from CANDIDO SALDIVAR and had the opportunity to ask questions and assume patient care.
[2019-01-06] MEDS: lactobacillus rhamnosus 10,000 MMU CELLS/CAPSULE PO SCH ×2 (08:36→20:51)
[2019-01-06] MEDS: carvedilol 6.25mg tablet PO SCH ×2 (08:37→20:52)
[2019-01-06] MEDS: amiodarone 200mg tablet PO SCH (08:37)
[2019-01-06] MEDS: busPIRone 5mg tablet PO SCH ×2 (08:37→20:51)
[2019-01-06] MEDS: docusate sod 100mg capsule PO SCH ×2 (09:22→20:52)
[2019-01-06] MEDS: pantoprazole 40mg Tablet.DR PO SCH (09:23)
[2019-01-06 11:00] VITALS: BP 159/63
[2019-01-06 15:00] VITALS: BP 137/51
--- NOTE | 2019-01-06 18:32 | NUR ---
Problems reprioritized. Patient report given, questions answered & plan of care reviewed with CANDIDO SALDIVAR.
--- NOTE | 2019-01-06 18:32 | NUR ---
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
[2019-01-06 19:00] VITALS: BP 185/70
[2019-01-06] MEDS: traZODone 50mg tablet PO SCH (20:51)
[2019-01-06] MEDS: prazosin 1mg capsule PO SCH (20:51)
[2019-01-06] MEDS: sennosides/docusate sodium tablet PO SCH (20:52)
[2019-01-06] MEDS: hydrALAZINE 20mg/ml inj. IV PRN (20:53)
[2019-01-06] MEDS ORDERED: warfarin 1mg tablet PO ONE (21:00)
[2019-01-06 23:00] VITALS: BP 115/48
[2019-01-07 03:00] VITALS: BP 113/45
[2019-01-07 05:48] LABS: BASOPHILS % (AUTO) 0.6 % (0-1); EOSINOPHILS # (AUTO) 0.1 X10'3 (0-0.9); EOSINOPHILS % (AUTO) 3.1 % (0-6); HEMATOCRIT 23.2 % (35.0-45.0); HEMOGLOBIN 7.7 g/dl (12.0-16.0); LYMPHOCYTES # (AUTO) 1.2 X10'3 (1.1-4.8); LYMPHOCYTES % (AUTO) 28.2 % (21-51); MEAN CORPUSCULAR HEMOGLOBIN 30.6 PG (27.0-31.0); MEAN CORPUSCULAR VOLUME 92.7 FL (78-98); MEAN PLATELET VOLUME 7.8 FL (7.4-10.4); MONOCYTES # (AUTO) 0.7 X10'3 (0-0.9); NEUTROPHILS # (AUTO) 2.3 X10'3 (1.8-7.7); NEUTROPHILS % (AUTO) 52.1 % (42-75); PLATELET COUNT 164 X10'3 (140-440); RED CELL DISTRIBUTION WIDTH 18.1 % (11.5-14.5); WHITE BLOOD COUNT 4.4 X10'3 (4.5-11.0)
[2019-01-07 05:54] LABS: ALBUMIN 2.4 G/DL (3.4-5.0); ANION GAP 1 (8-16); BLOOD UREA NITROGEN 16 MG/DL (7-18); BUN/CREATININE RATIO 13.3 (6.6-38.0); CALCIUM 8.3 MG/DL (8.5-10.1); CHLORIDE 107 MMOL/L (99-107); GLUCOSE 75 MG/DL (70-104); MAGNESIUM 1.8 MG/DL (1.5-2.4); SODIUM 145 MMOL/L (135-145); TOTAL CARBON DIOXIDE 37.4 MMOL/L (24-32); eGFR 44 ML/MIN
[2019-01-07 05:56] LABS: PHOSPHORUS 3.6 MG/DL (2.3-4.5); POTASSIUM 3.8 MMOL/L (3.5-5.1)
--- NOTE | 2019-01-07 06:00 | NUR ---
Patient in room U 3019. I have received report from CANDIDO Woodruff and had the opportunity to ask questions and assume patient care. Pt in bed sleeping
--- NOTE | 2019-01-07 06:09 | NUR ---
Problems reprioritized. Patient report given, questions answered & plan of care reviewed with CANDIDO Ralph.
[2019-01-07 07:12] VITALS: BP 151/51
[2019-01-07] MEDS: busPIRone 5mg tablet PO SCH (07:31)
[2019-01-07] MEDS: docusate sod 100mg capsule PO SCH (07:31)
[2019-01-07] MEDS: carvedilol 6.25mg tablet PO SCH (07:31)
[2019-01-07] MEDS: pantoprazole 40mg Tablet.DR PO SCH (07:31)
[2019-01-07] MEDS: amiodarone 200mg tablet PO SCH (07:31)
[2019-01-07] MEDS: lactobacillus rhamnosus 10,000 MMU CELLS/CAPSULE PO SCH (07:31)
[2019-01-07 09:50] LABS: CLARITY,URINE CLOUDY (Clear); COLOR,URINE YELLOW (Yellow); GLUCOSE, URINE NEGATIVE (Neg); KETONES,URINE NEGATIVE (Neg); LEUKOCYTE ESTERASE ,URINE TRACE (Neg); NITRITES, URINE POSITIVE (Neg); OCCULT BLOOD,URINE LARGE (Neg); PROTEIN,URINE 100 mg/dl (Neg); UROBILINOGEN,URINE 0.2 E.U/dL (0.2-1.0)
[2019-01-07 09:55] LABS: UA COLLECTION TYPE CLN CATCH MIDSTREAM
[2019-01-07 09:58] LABS: BACTERIA,URINE 4+ /HPF (Neg); MUCUS STRANDS FEW /LPF (Neg); RBC,URINE 0-2 /HPF (0-2); SQUAMOUS EPITHELIAL CELL,UR MODERATE /LPF (FEW); WBC,URINE 20-30 /HPF (0-4)
[2019-01-07 09:59] LABS: TRANSITIONAL EPI CELLS,URINE FEW /HPF; WBC CLUMPS,URINE FEW /HPF (NEGATIVE)
[2019-01-07 10:00] LABS: HYALINE CASTS 0-3 /LPF (NEGATIVE)
[2019-01-07 10:59] LABS: TOTAL PROTEIN,URINE RANDOM 204.9 MG/DL
--- NOTE | 2019-01-07 11:00 | NUR ---
REFUSED VITAL SIGNS.
[2019-01-07] MEDS ORDERED: potassium chloride 8mEq ER tablet PO ONE (11:35)
[2019-01-07] MEDS ORDERED: furosemide 10 MG/1 ML 10ml inj IV ONE (11:35)
[2019-01-07 11:46] LABS: ANISOCYTOSIS 2+; PLATELET ESTIMATE NORMAL; TOTAL CELLS COUNTED 100
[2019-01-07 11:47] LABS: HYPOCHROMASIA 1+; POLYCHROMASIA FEW
--- NOTE | 2019-01-07 11:50 | NUR ---
O2 Sat at rest on room air:__85_% If below 89%: Recovery O2 Sat at rest on _3__LPM: %:93% via____NC (mask/nasal cannula, etc..) No further documentation is necessary. If O2 Sat did not drop below 89% on room air,ambulate patient on room air. O2 Sat while ambulating on room air:___% Recovery O2 Sat while ambulating on ___LPM:___% No further documentation is necessary. If patient does not drop below 89% while ambulating, he/she does not qualify for home O2.
[2019-01-07] MEDS ORDERED: potassium Cl 20 mEq SR tablet PO STA (12:00)
--- NOTE | 2019-01-07 13:10 | NUR ---
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
[2019-01-08 13:15] LABS: A/G RATIO 1.1 (0.7-1.7); ALBUMIN 2.8 g/dL (2.9-4.4); BETA GLOBULIN 0.7 g/dL (0.7-1.3); GAMMA GLOBULIN 1.2 g/dL (0.4-1.8); GLOBULIN, TOTAL 2.5 g/dL (2.2-3.9); M-SPIKE Not Observed g/dL (Not Observed); PROTEIN, TOTAL, SERUM 5.3 g/dL (6.0-8.5)
[2019-01-09 13:18] LABS: ALBUMIN, UR 28.3 % (.); ALPHA-1-GLOBULIN,UR 2.9 % (.); ALPHA-2-GLOBULIN,UR 7.6 % (.); BETA GLOBULIN, UR 26.7 % (.); GAMMA GLOBULIN,UR 34.4 % (.); M-SPIKE, % 16.5 % (Not Observed); PROTEIN,TOTAL,URINE 156.8 mg/dL (Not Estab.)
== END 2019-01-07 13:11 | DRG 371 ==
LOC: ICU 2S 12:07 → PCU 3S 12-22 15:50
PROVIDERS: ADMIT Internal Medicine Critical Care Medicine; ATTEND Internal Medicine Critical Care Medicine
PROC: 30233N1 Transfusion of Nonautologous Red Blood Cells into Peripheral Vein, Percutaneous Approach (ICD-10-PCS; principal; 2018-12-20)
PROC: BQ2S1ZZ Computerized Tomography (CT Scan) of Left Lower Extremity using Low Osmolar Contrast (ICD-10-PCS; 2018-12-20)
PROC: 30233N1 Transfusion of Nonautologous Red Blood Cells into Peripheral Vein, Percutaneous Approach (ICD-10-PCS; 2018-12-21)
PROC: B42G1ZZ Computerized Tomography (CT Scan) of Left Lower Extremity Arteries using Low Osmolar Contrast (ICD-10-PCS; 2018-12-21)
PROC: 30233N1 Transfusion of Nonautologous Red Blood Cells into Peripheral Vein, Percutaneous Approach (ICD-10-PCS; 2018-12-22)
PROC: 30233N1 Transfusion of Nonautologous Red Blood Cells into Peripheral Vein, Percutaneous Approach (ICD-10-PCS; 2018-12-24)
PROC: 30233N1 Transfusion of Nonautologous Red Blood Cells into Peripheral Vein, Percutaneous Approach (ICD-10-PCS; 2018-12-26)
PROC: 30233N1 Transfusion of Nonautologous Red Blood Cells into Peripheral Vein, Percutaneous Approach (ICD-10-PCS; 2018-12-28)
DX: A04.72 Enterocolitis due to Clostridium difficile, not specified as recurrent (principal); G93.41 Metabolic encephalopathy; Z68.41 Body mass index [BMI] 40.0-44.9, adult; D64.9 Anemia, unspecified; S70.12XA Contusion of left thigh, initial encounter; X58.XXXA Exposure to other specified factors, initial encounter; R19.7 Diarrhea, unspecified; I71.2 Thoracic aortic aneurysm, without rupture; Z79.01 Long term (current) use of anticoagulants; Z95.2 Presence of prosthetic heart valve; Z88.1 Allergy status to other antibiotic agents; Z79.899 Other long term (current) drug therapy; Z93.0 Tracheostomy status; Z90.49 Acquired absence of other specified parts of digestive tract; Z78.1 Physical restraint status; Y93.89 Activity, other specified; Y92.89 Other specified places as the place of occurrence of the external cause; Y99.8 Other external cause status
CPT/HCPCS: 36415; 71045; 71250; 73701; 73706; 74176; 80048; 80053; 81001; 82272; 82570; 82728; 82948; 83540; 83550; 83735; 84100; 84155; 84156; 84165; 84166; 84439; 84443; 85025; 85027; 85610; 85730; 86885; 86900; 86901; 86920; 87077; 87081; 87088; 87186; 97110; 97116; 97162; 97530; G0378; J0360; J1170; J1644; J1940; J2060; J2270; J3486; J7030; P9016; Q4081; Q9967